=== PATIENT | male | born 1955 | race Caucasian/White ===

== ENCOUNTER → 2017-11-23 | Outpatient (CLI) | payer MEDICARE ==
--- NOTE | 2017-11-23 16:18 | CONS ---
CONSULTATION REASON FOR CONSULTATION: Sleep apnea. This 62-year-old male patient, well known to have obstructive sleep apnea. I have treated his in the past for RODOLFO and the patient has similar symptoms of snoring, witnessed apneas and excessive daytime sleepiness during the day. He goes to bed around midnight and wakes up 7:00 am in the morning. He has symptoms of nocturia. His current [place] score is 11. Does not fall asleep while driving. PAST MEDICAL HISTORY: 1. Lung cancer, with previous lobectomy for stage I non-small cell lung cancer. 2. Coronary artery disease. 3. Carotid artery disease with previous endarterectomy. 4. Congestive heart failure. PAST SURGICAL HISTORY: Left lower lobe resection, coronary artery bypass surgery, left carotid endarterectomy, bilateral knee surgery in 2016 and another mass resected from the neck area which turned out to be benign. ALLERGIES: VIAGRA. OUTPATIENT MEDICATION LIST: Includes hydralazine 50 mg twice a day, Metoprolol 50 mg b.i.d., enalapril 20 mg p.o. daily, dig 0.25 mg p.o. daily, Norvasc 10 daily, Lasix 20 daily, Klor-Con 20 mg daily, Lipitor 10 daily, Lambert aspirin 81 mg p.o. daily and 125 mg p.o. daily. SOCIAL HISTORY: Nonsmoker and in face is an ex-smoker. No history of alcohol, no history of IV drugs. FAMILY HISTORY: Negative for sleep apnea. REVIEW OF SYSTEMS: 12-point review of system was done. Positive findings are mentioned above history of present illness. Of significance is the absence of any symptoms of insomnia. No grinding of the teeth. No sleepwalking. No dry mouth. No anxiety or panic attacks. No palpitation. No heartburn. No restlessness in lower extremities. No sleep talking. No sweating. No claustrophobia. No irritability or depression. No history of any motor vehicle accident because of sleep. No sleep paralysis. No hallucinations. No cataplexy. PHYSICAL EXAMINATION: BP is 137/80, pulse is 68, respirations 16, temperature 98.2, saturation 94% on room air. Weight is 207, height 5 feet 9 inches. Neck size 16-3/4 of an inch. BMI 30.5. GENERAL APPEARANCE: Calm, comfortable. Head is atraumatic, normocephalic. Neck is short, supple. Crowding of the posterior pharynx. There is no goiter or neck masses. LUNGS: Clear to auscultation. HEART: Sounds regular rhythm. Normal S1, S2. No S3, S4. No murmurs. ABDOMEN: Soft, nontender. No organomegaly. EXTREMITIES: No edema. No cyanosis or clubbing. IMPRESSION: 1. Sleep apnea clinically suspected, currently under investigation. 2. Lungs cancer/non-small cell lung cancer stage I status post lobectomy. 3. Coronary artery disease. 4. Status post carotid endarterectomy for carotid artery disease. 5. History of congestive heart failure. 6. Degenerative arthritis. PLAN: 1. Proceed with a PSG. 2. Will continue to follow and make further recommendations based on the results. MMODL / IJN: [id number] /
== END | disposition home or self-care (01) ==
LOC: SLEEP 13:06
PROVIDERS: ATTEND Internal Medicine Critical Care Medicine
DX: G47.33 Obstructive sleep apnea (adult) (pediatric) (principal); R35.1 Nocturia; C34.90 Malignant neoplasm of unspecified part of unspecified bronchus or lung; I25.10 Atherosclerotic heart disease of native coronary artery without angina pectoris; I50.9 Heart failure, unspecified; M19.90 Unspecified osteoarthritis, unspecified site; Z98.890 Other specified postprocedural states; Z90.2 Acquired absence of lung [part of]; Z79.82 Long term (current) use of aspirin; Z79.899 Other long term (current) drug therapy; Z88.8 Allergy status to other drugs, medicaments and biological substances
CPT/HCPCS: 99201

== ENCOUNTER → 2018-07-04 | Outpatient (CLI) | payer MEDICARE ==
[2018-07-04 17:07] LABS: Basophils # (A) 0.1 k/uL (0-0.2); Basophils % (A) 1 %; Eosinophils # (A) 0.2 k/uL (0-0.7); Eosinophils % (A) 3 %; HCT 51.8 % (39.0-53.0); HGB 16.8 gm/dL (13.0-17.5); Lymphocytes % (A) 28 %; MCH 29.8 pg (25.0-35.0); MCHC 32.4 g/dL (31.0-37.0); MCV 91.8 fL (80.0-100.0); Mean Platelet Volume 7.1; Monocytes # (A) 0.4 k/uL (0-1.0); Monocytes % (A) 6 %; Neutrophils # (A) 4.4 k/uL (1.3-7.7); Neutrophils % (A) 61 %; Platelet Count 173 k/uL (150-450); RBC 5.64 m/uL (4.30-5.90); RDW 14.2 % (11.5-15.5); WBC 7.1 k/uL (3.8-10.6)
[2018-07-05 00:50] LABS: Albumin 4.5 g/dL (3.80-4.90); Albumin/Globulin Ratio 2.14 (1.60-3.17); Anion Gap 8.1 mmol/L (4.00-12.00); Calcium 9.7 mg/dL (8.7-10.3); Carbon Dioxide 28.9 mmol/L (21.6-31.8); Globulin 2.1 g/dL (1.6-3.3); LDL Cholesterol,Calculated 123.8 mg/dL (0.0-131.0); Potassium 4.3 mmol/L (3.5-5.5); Total Bilirubin 0.8 mg/dL (0.3-1.2); Total Protein 6.6 g/dL (6.2-8.2); VLDL Calculation 21.2 mg/dL (5.00-40.00)
== END | disposition home or self-care (01) ==
LOC: LABWHC1 16:01
PROVIDERS: ATTEND Family Medicine
DX: I65.21 Occlusion and stenosis of right carotid artery (principal); I10 Essential (primary) hypertension; J44.9 Chronic obstructive pulmonary disease, unspecified; I70.212 Atherosclerosis of native arteries of extremities with intermittent claudication, left leg; I42.9 Cardiomyopathy, unspecified; I48.4 Atypical atrial flutter; R41.3 Other amnesia
CPT/HCPCS: 36415; 80053; 80061; 82550; 82607; 83090; 83735; 83880; 84439; 85025

== ENCOUNTER → 2018-10-31 | Outpatient (CLI) | payer MEDICARE ==
[2018-10-31 16:46] LABS: African American GFR (CKD) 81.8 (60.0-200.0); Albumin 4.3 g/dL (3.80-4.90); Albumin/Globulin Ratio 2.26 (1.60-3.17); Anion Gap 6.9 mmol/L (4.00-12.00); BUN/Creat Ratio 15.45 Ratio (12.00-20.00); Calcium 9.2 mg/dL (8.7-10.3); Carbon Dioxide 28.1 mmol/L (21.6-31.8); Chol/HDL Ratio 3.25; Globulin 1.9 g/dL (1.6-3.3); LDL Cholesterol,Calculated 95.8 mg/dL (0.0-131.0); Non-African American GFR(CKD) 70.6 (60.0-200.0); Potassium 4.7 mmol/L (3.5-5.5); Total Bilirubin 0.8 mg/dL (0.2-1.2); Total Protein 6.2 g/dL (6.2-8.2); VLDL Calculation 12.2 mg/dL (5.00-40.00)
== END | disposition home or self-care (01) ==
LOC: LABWHC1 10:29
PROVIDERS: ATTEND Internal Medicine Interventional Cardiology
DX: E78.2 Mixed hyperlipidemia (principal)
CPT/HCPCS: 36415; 80053; 80061

== ENCOUNTER 2019-04-25 11:48 | Inpatient (IN) | payer MEDICARE ==
[2019-04-25] MEDS ORDERED: SODIUM CHLORIDE 0.9% 500 ML 500 ML IV STA (12:11)
[2019-04-25] MEDS ORDERED: DILTIAZEM DRIP BOLUS FROM BAG 1 MG SOLN IV ONE (12:12)
--- NOTE | 2019-04-25 12:18 | ED ---
General Adult HPI - General Chief complaint: Shortness of Breath Stated complaint: Chest pain/ROSANNA Time Seen by Provider: 04/25/19 11:55 Source: patient, RN notes reviewed, old records reviewed Mode of arrival: wheelchair Limitations: no limitations - History of Present Illness Initial comments: This is a 63-year-old male who presents to the emergency department complaining of his heart racing. Patient states she has a history of atrial fibrillation w ith ablation. Patient also has coronary artery disease. Patient also has had a pneumonectomy for lung cancer. Patient states started 4 days ago and it makes him short of breath. Patient states she doubled up on his beta claudio today and things have improved but he still short of breath and having the palpitations. Patient denies any chest pain. Patient denies any abdominal pain patient denies any nausea vomiting. Patient denies lightheadedness or dizziness. Patient denies any swelling to legs or calf tenderness. - Related Data Home Medications Medication Instructions Recorded Confirmed Ascorbic Acid/Multivit-Min 1,000 mg PO DAILY 04/25/19 04/25/19 [Emergen-C 1,000 mg Packet] Atorvastatin [Lipitor] 40 mg PO DAILY 04/25/19 04/25/19 Cyanocobalamin (Vitamin B-12) 1,000 mcg PO DAILY 04/25/19 04/25/19 [Vitamin B-12] Enalapril [Vasotec] 20 mg PO DAILY 04/25/19 04/25/19 Furosemide [Lasix] 20 mg PO DAILY 04/25/19 04/25/19 Metoprolol Tartrate [Lopressor] 50 mg PO DAILY 04/25/19 04/25/19 [place]-3 Fatty Acids [[place]-3] 1,000 mg PO DAILY 04/25/19 04/25/19 Potassium Chloride [Klor-Con 20] 20 meq PO DAILY 04/25/19 04/25/19 amLODIPine [Norvasc] 10 mg PO DAILY 04/25/19 04/25/19 hydrALAZINE HCL [Apresoline] 100 mg PO DAILY 04/25/19 04/25/19 Allergies Allergy/AdvReac Type Severity Reaction Status Date / Time sildenafil [From Viagra] Allergy blurred Verified 04/25/19 14:40 vision Review of Systems ROS Statement: Those systems with pertinent positive or pertinent negative responses have been documented in the HPI. ROS Other: All systems not noted in ROS Statement are negative. Past Medical History Past Medical History: Atrial Fibrillation, Coronary Artery Disease (CAD), C ancer, Hypertension, Myocardial Infarction ([place]) Additional Past Medical History / Comment(s): alexandro ca History of Any Multi-Drug Resistant Organisms: None Reported Past Surgical History: Ablation, Coronary Bypass/CABG, Orthopedic Surgery Additional Past Surgical History / Comment(s): caroid artery,lung adenocinoma,mass n neck removed, kathleen knee Past Psychological History: No Psychological Hx Reported Smoking Status: Former smoker Past Alcohol Use History: None Reported Past Drug Use History: None Reported General Exam - General Exam Comments Initial Comments: GENERAL: Patient is well-developed and well-nourished. Patient is nontoxic and well- hydrated and is in mild distress. ENT: Neck is soft and supple. No significant lymphadenopathy is noted. Oropharynx is clear. Moist mucous membranes. Neck has full range of motion without eliciting any pain. EYES: The sclera were anicteric and conjunctiva were pink and moist. Extraocular movements were intact and pupils were equal round and reactive to light. Eyelids were unremarkable. PULMONARY: Unlabored respirations. Good breath sounds bilaterally. No audible rales rhonchi or wheezing was noted. CARDIOVASCULAR: Patient is tachycardic with an irregular rhythm ABDOMEN: Soft and nontender with normal bowel sounds. No palpable organomegaly was noted. There is no palpable pulsatile mass. SKIN: Skin is clear with no lesions or rashes and otherwise unremarkable. NEUROLOGIC: Patient is alert and oriented x3. Cranial nerves II through XII are grossly intact. Motor and sensory are also intact. Normal speech, volume and content. Symmetrical smile. MUSCULOSKELETAL: Normal extremities with adequate strength and full range of motion. No lower extremity swelling or edema. No calf tenderness. LYMPHATICS: No significant lymphadenopathy is noted PSYCHIATRIC: Normal psychiatric evaluation. Limitations: no limitations Course Vital Signs 04/25/19 04/25/19 04/25/19 11:51 12:38 12:39 Temperature 97.9 F Pulse Rate 132 H 137 H 134 H Respiratory 28 H 18 17 Rate Blood Pressure 121/80 138/63 125/92 O2 Sat by Pulse 98 94 L 98 Oximetry 04/25/19 04/25/19 04/25/19 12:45 13:00 13:15 Temperature Pulse Rate 131 H 134 H 132 H Respiratory 18 16 18 Rate Blood Pressure 125/92 119/90 109/85 O2 Sat by Pulse 92 L 94 L 94 L Oximetry Medical Decision Making - Medical Decision Making EKG shows atrial fibrillation with rapid ventricular response at 135 bpm CO interval was not seen QRS is 86 QT interval 310 QTC is 465. Patient's EKG shows no ST segment elevation or depression. Chest x-ray shows mild pulmonary edema. Patient was started on Cardizem after given a Cardizem bolus. Patient remained tachycardic. Ultrasound of the scrotum showed hydrocele on the right I spoke with Dr. Jett and he agreed to admit the patient admitted the patient I consult cardiology. I continue the heparin from the ER on the floor and I continued Cardizem drip - Lab Data Result diagrams: 04/25/19 12:05 04/25/19 12:05 Lab Results 04/25/19 04/25/19 04/25/19 Range/Units 12:05 12:05 12:05 WBC 9.0 (3.8-10.6) k/uL RBC 5.31 (4.30-5.90) m/uL Hgb 16.1 (13.0-17.5) gm/dL Hct 50.1 (39.0-53.0) % MCV 94.5 (80.0-100.0) fL MCH 30.3 (25.0-35.0) pg MCHC 32.0 (31.0-37.0) g/dL RDW 14.5 (11.5-15.5) % Plt Count 173 (150-450) k/uL Neutrophils % 69 % Lymphocytes % 19 % Monocytes % 6 % Eosinophils % 3 % Basophils % 2 % Neutrophils # 6.2 (1.3-7.7) k/uL Lymphocytes # 1.7 (1.0-4.8) k/uL Monocytes # 0.6 (0-1.0) k/uL Eosinophils # 0.3 (0-0.7) k/uL Basophils # 0.2 (0-0.2) k/uL PT 10.7 (9.0-12.0) sec INR 1.0 (<1.2) APTT 24.0 (22.0-30.0) sec Sodium 139 (137-145) mmol/L Potassium 5.0 (3.5-5.1) mmol/L Chloride 111 H (98-107) mmol/L Carbon Dioxide 20 L (22-30) mmol/L Anion Gap 8 mmol/L BUN 21 H (9-20) mg/dL Creatinine 1.22 (0.66-1.25) mg/dL Est GFR (CKD-EPI)AfAm 72 (>60 ml/min/1.73 sqM) Est GFR (CKD-EPI)NonAf 63 (>60 ml/min/1.73 sqM) Glucose 104 H (74-99) mg/dL Calcium 9.4 (8.4-10.2) mg/dL Magnesium 2.1 (1.6-2.3) mg/dL Total Bilirubin 0.9 (0.2-1.3) mg/dL AST 53 (17-59) U/L ALT 48 (4-49) U/L Alkaline Phosphatase 74 (38-126) U/L Troponin I (0.000-0.034) ng/mL Total Protein 6.7 (6.3-8.2) g/dL Albumin 4.0 (3.5-5.0) g/dL 04/25/19 Range/Units 12:05 WBC (3.8-10.6) k/uL RBC (4.30-5.90) m/uL Hgb (13.0-17.5) gm/dL Hct (39.0-53.0) % MCV (80.0-100.0) fL MCH (25.0-35.0) pg MCHC (31.0-37.0) g/dL RDW (11.5-15.5) % Plt Count (150-450) k/uL Neutrophils % % Lymphocytes % % Monocytes % % Eosinophils % % Basophils % % Neutrophils # (1.3-7.7) k/uL Lymphocytes # (1.0-4.8) k/uL Monocytes # (0-1.0) k/uL Eosinophils # (0-0.7) k/uL Basophils # (0-0.2) k/uL PT (9.0-12.0) sec INR (<1.2) APTT (22.0-30.0) sec Sodium (137-145) mmol/L Potassium (3.5-5.1) mmol/L Chloride (98-107) mmol/L Carbon Dioxide (22-30) mmol/L Anion Gap mmol/L BUN (9-20) mg/dL Creatinine (0.66-1.25) mg/dL Est GFR (CKD-EPI)AfAm (>60 ml/min/1.73 sqM) Est GFR (CKD-EPI)NonAf (>60 ml/min/1.73 sqM) Glucose (74-99) mg/dL Calcium (8.4-10.2) mg/dL Magnesium (1.6-2.3) mg/dL Total Bilirubin (0.2-1.3) mg/dL AST (17-59) U/L ALT (4-49) U/L Alkaline Phosphatase (38-126) U/L Troponin I <0.012 (0.000-0.034) ng/mL Total Protein (6.3-8.2) g/dL Albumin (3.5-5.0) g/dL Critical Care Time Critical Care Time: Yes Total Critical Care Time: 35 Disposition Clinical Impression: Atrial fibrillation with rapid ventricular response, Pulmonary edema, Hydrocele Disposition: ADMITTED IP TO THIS [facility] Time of Disposition: 13:54
[2019-04-25 12:23] LABS: Basophils # (A) 0.2 k/uL (0-0.2); Basophils % (A) 2 %; Eosinophils # (A) 0.3 k/uL (0-0.7); Eosinophils % (A) 3 %; HCT 50.1 % (39.0-53.0); HGB 16.1 gm/dL (13.0-17.5); Lymphocytes # (A) 1.7 k/uL (1.0-4.8); Lymphocytes % (A) 19 %; MCH 30.3 pg (25.0-35.0); MCV 94.5 fL (80.0-100.0); Mean Platelet Volume 8.8; Monocytes # (A) 0.6 k/uL (0-1.0); Monocytes % (A) 6 %; Neutrophils # (A) 6.2 k/uL (1.3-7.7); Neutrophils % (A) 69 %; Platelet Count 173 k/uL (150-450); RBC 5.31 m/uL (4.30-5.90); RDW 14.5 % (11.5-15.5)
[2019-04-25] MEDS: DILTIAZEM 125 MG in SODIUM CHLORIDE 0.9% 100 ML IV SCH ×2 (12:33→22:49)
--- NOTE | 2019-04-25 12:36 | XR ---
EXAMINATION TYPE: XR chest 2V DATE OF EXAM: 04/25/2019 COMPARISON: NONE HISTORY: Shortness of breath cough and congestion for 4 days. Chest tightness today. TECHNIQUE: Frontal and lateral views of the chest are obtained. FINDINGS: There is mild cardiomegaly with cardiac closure device posterior superior aspect. Overlyin g sternal wires and mediastinal clips. Mild central vascular congestion suspected with multiple tiny left greater than right pleural effusions. Patchy associated bibasilar atelectasis is felt present. T he osseous structures are demineralized. Surgical clips right neck are partially imaged. IMPRESSION: Correlate for CHF exacerbation as there is mild cardiomegaly with suspected mild central vascular congestion and interstitial edema and small to tiny left greater than right pleural effusio ns.
[2019-04-25 12:47] LABS: Calcium 9.4 mg/dL (8.4-10.2); Magnesium 2.1 mg/dL (1.6-2.3); Total Bilirubin 0.9 mg/dL (0.2-1.3); Total Protein 6.7 g/dL (6.3-8.2)
[2019-04-25 12:54] LABS: Prothrombin Time 10.7 sec (9.0-12.0)
[2019-04-25] MEDS ORDERED: HEPARIN SODIUM,PORCINE 5,000 UNIT/ML 1 ML VIAL IV ONE (13:51)
[2019-04-25] MEDS ORDERED: NITROGLYCERIN SL TABS 0.4 MG TAB SUBLINGUAL PRN (13:55)
--- NOTE | 2019-04-25 13:58 | US ---
EXAMINATION TYPE: US scrotum with doppler. TECHNIQUE: Grayscale and color Doppler Duplex imaging performed of the scrotum. DATE OF EXAM: 04/25/2019 COMPARISON: NONE CLINICAL HISTORY: 63-year-old male Right testicular pain . Right side pain. No injury per patient. Findings: EXAM MEASUREMENTS: TESTICLES: Right Testicle: 2.4 x 3.8 x 2.7 cm with a small 4 mm appendage. A small 3 mm scrotal joellen also note d. Left Testicle: 3.7 x 2.7 x 2.4 cm EPIDIDYMIS HEAD: Right Epididymis: Not visualized Left Epididymis: 1.0 x 0.9 x 0.7 cm Doppler performed to assess for testicular vascularity; good bilateral color flow and waveforms are s een. There is no evidence of testicular torsion. Presence of hydroceles: Moderate to large on the right Presence of varicoceles: Sizable on the left IMPRESSION: 1. No sonographic evidence for testicular torsion. 2. Sizable varicocele on the left. 3. Moderate to large hydrocele on the right.
[2019-04-25] MEDS: HEPARIN SOD,PORK IN 0.45% NACL 25,000 UNIT in 0.45% NACL 1 250ML.BAG IV SCH (14:51)
[2019-04-25 15:09] LABS: Appearance,Urine Clear (Clear); Bilirubin,Urine Negative (Negative); Blood,Urine Negative (Negative); Color,Urine Yellow; Glucose,Urine (UA) Negative (Negative); Hyaline Casts,Urine 10 /lpf (0-2); Ketones,Urine Negative (Negative); Leukocyte Esterase,Urine Negative (Negative); Mucus,Urine Rare /hpf; Nitrite,Urine Negative (Negative); Protein,Urine 1+ (Negative); RBC,Urine <1 /hpf (0-5); Specific Gravity,Urine 1.012 (1.001-1.035); Urobilinogen,Urine <2.0 mg/dL (<2.0); WBC,Urine 1 /hpf (0-5)
[2019-04-25] MEDS ORDERED: AMIODARONE 200 MG TAB PO STA (16:30)
[2019-04-25] MEDS ORDERED: FUROSEMIDE 10 MG/ML 4 ML VIAL IV STA (16:42)
--- NOTE | 2019-04-25 18:21 | CONS ---
CONSULTATION CHIEF COMPLAINT: Palpitations. Mr. Aparicio is a 63-year-old gentleman with history of hypertension, dyslipidemia, peripheral vascular disease, carotid stenosis, status post right carotid endarterectomy, coronary artery disease, status post CABG, atrial fibrillation, status post ablation, who comes to hospital complaining of palpitations. He has been feeling short of breath and having palpitations for the last 4 days. It started on Wednesday, got gradually worse. He called our office, where he was told to increase the dose of metoprolol. As symptoms got worse, he was advised to come to the emergency room and get admitted. He does not have any chest pain but has mild leg edema. There is no history of PND or orthopnea. He also complains of scrotal swelling. At the time of my evaluation, he is in atrial fibrillation with poorly controlled ventricular rate. He was on Cardizem 7.5 mg/hour. I increased it to 10 mg/hour. He is on Lasix. I am going to give him a dose of 40 mg of IV Lasix and resume his beta blockers. I have given him a dose of amiodarone 400 b.i.d. If his heart rate is not well controlled or he does not convert to sinus rhythm, we will consider cardioversion on him. PAST MEDICAL HISTORY: His past medical history is significant for CAD, status post CABG, hypertension, lung cancer, status post pneumonectomy, carotid stenosis, status post right carotid endarterectomy, peripheral arterial disease, status post angioplasty. ALLERGIES: VIAGRA. MEDICATIONS: Medications at home include Lipitor, vitamin C, Vasotec, Lasix, potassium, Norvasc, metoprolol and hydralazine. FAMILY HISTORY: Negative for premature coronary artery disease. SOCIAL HISTORY: Negative for current smoking, EtOH abuse or drug abuse. REVIEW OF SYSTEMS: HEENT is unremarkable. CARDIAC: As described above. RESPIRATORY: As described above. GI: Negative. GENITOURINARY: Negative. ALLERGY: Negative. IMMUNOLOGY: Negative. SKIN: Negative. MUSCULOSKELETAL: Significant for arthritis. PSYCHOSOCIAL: Negative. ENDOCRINE: Negative. DERMATOLOGY: Negative. CONSTITUTIONAL: Negative. ONCOLOGICAL: Negative. FUEL CELL REPAIRER: Negative. Rest of the system review is not relevant. PHYSICAL EXAMINATION: Patient is comfortable at rest. Heart rate is 126 beats per minute. Blood pressure is 120/82, respiratory rate is 18. Oxygen saturation is 97% on room air. There is no jugular venous distention. Carotid upstroke is diminished. There is right-sided carotid bruit. Heart exam reveals first and second heart sounds, irregular rhythm and a systolic murmur at the left lower sternal border. Abdomen is soft. Examination of extremities reveals bilateral 1+ pitting edema. EKG shows atrial fibrillation with nonspecific ST-T wave changes. Chest x-ray showed cardiomegaly with interstitial edema. ASSESSMENT: 1. Persistent atrial fibrillation with poorly controlled ventricular rate. 2. Acute onset congestive heart failure, probably diastolic. 3. Coronary artery disease, status post coronary artery bypass grafting. 4. Carotid stenosis, status post carotid endarterectomy. 5. Peripheral vascular disease. PLAN: Patient will be treated with heparin, intravenous Cardizem, amiodarone, IV Lasix, beta blockers, DOROTHY inhibitors. I will obtain a 2D echo to evaluate his LV function. Will see how he evolves over the next 24 hours. If necessary, we may have to do KATHLEEN cardioversion. ABRAN / IJN: [id number] /
[2019-04-25] MEDS: AMIODARONE 200 MG TAB PO SCH (20:19)
[2019-04-26 06:10] LABS: Cholesterol 115 mg/dL (<200); HDL Cholesterol 37 mg/dL (40-60); LDL Cholesterol,Calculated 64 mg/dL (0-99); Triglycerides 71 mg/dL (<150)
[2019-04-26] MEDS: METOPROLOL TARTRATE 50 MG TAB PO SCH (08:55)
[2019-04-26] MEDS: AMIODARONE 200 MG TAB PO SCH ×2 (08:55→20:14)
[2019-04-26] MEDS: LISINOPRIL 20 MG TAB PO SCH (08:56)
[2019-04-26] MEDS: ASPIRIN 81 MG PO SCH (08:56)
[2019-04-26] MEDS ORDERED: ASPIRIN 325 MG TAB PO SCH (09:00)
[2019-04-26] MEDS ORDERED: SODIUM CHLORIDE 0.9% 1,000 ML IV ONE ×2 (09:55→13:54)
[2019-04-26] MEDS: HEPARIN SOD,PORK IN 0.45% NACL 25,000 UNIT in 0.45% NACL 1 250ML.BAG IV SCH (10:36)
--- NOTE | 2019-04-26 12:59 | P.GSCN ---
History of Present Illness Consult date: 04/26/19 History of present illness: The patient is a 63 old gentleman admitted the hospital with atrial fibrillation and rapid ventricular rate. During evaluation he was noticed to have a right scrotal mass consistent with a hydrocele. We've been asked to see the patient. Historically this patient's hydroceles been present for about 48 hours. He does admit to some heavy lifting in the last several days. He has no other urologic history. He has no problems urinating. There's been no groin masses scrotal masses. There's been no urine infection. There's been no blood in the urine. He has not had previous urologic surgery. He had an ultrasound that identified bilateral hydroceles very large on the right and small on the left. He had a urinalysis that was clear. He is asymptomatic. Review of Systems - Constitutional Reports as per HPI - Cardiovascular Reports as per HPI - Genitourinary Reports as per HPI Past Medical History Past Medical History: Atrial Fibrillation, Coronary Artery Disease (CAD), Cancer, Heart Failure, COPD, Hypertension, Myocardial Infarction ([place]), Osteoarthritis (OA), Pneumonia, Sleep Apnea/CPAP/BIPAP, Vascular Disorder Additional Past Medical History / Comment(s): Afib with ablation, R testicle edema starting 04/24/19, L lung cancer with surgery, RODOLFO without device, bronchitis, chronic low back pain, stomach ulcer at age 15 yrs. Last Myocardial Infarction Date:: 2011 History of Any Multi-Drug Resistant Organisms: None Reported Past Surgical History: Cardiac Ablation, Coronary Bypass/CABG, Heart Catheterization, Joint Replacement, Orthopedic Surgery Additional Past Surgical History / Comment(s): 2014 L lower lung lobectomy, L caratid endartectomy, 2011 CABG 3 vessel, R side of neck benign mass removed, bilateral leg vascular surgery with R leg done twice, colonoscopy, bilateral total knee arthroplasties, L index finger injury/amp at 13y/o. Past Anesthesia/Blood Transfusion Reactions: No Reported Reaction Smoking Status: Former smoker Additional Past Alcohol Use History / Comment(s): Patient was a smoker of 1 ppd x 40 years and quit 2014. No illicet - Past Family History Father Family Medical History: No Reported History Additional Family Medical History / Comment(s): Father is healthy and is 87yrs old Mother Family Medical History: Vascular Disorder Additional Family Medical History / Comment(s): Mother is . She had multiple blockages in her legs. Medications and Allergies Home Medications Medication Instructions Recorded Confirmed Type Ascorbic Acid/Multivit-Min 1,000 mg PO DAILY 04/25/19 04/25/19 History [Emergen-C 1,000 mg Packet] Atorvastatin [Lipitor] 40 mg PO DAILY 04/25/19 04/25/19 History Cyanocobalamin (Vitamin B-12) 1,000 mcg PO DAILY 04/25/19 04/25/19 History [Vitamin B-12] Enalapril [Vasotec] 20 mg PO DAILY 04/25/19 04/25/19 History Furosemide [Lasix] 20 mg PO DAILY 04/25/19 04/25/19 History Metoprolol Tartrate [Lopressor] 50 mg PO DAILY 04/25/19 04/25/19 History [place]-3 Fatty Acids [[place]-3] 1,000 mg PO DAILY 04/25/19 04/25/19 History Potassium Chloride [Klor-Con 20] 20 meq PO DAILY 04/25/19 04/25/19 History amLODIPine [Norvasc] 10 mg PO DAILY 04/25/19 04/25/19 History hydrALAZINE HCL [Apresoline] 100 mg PO DAILY 04/25/19 04/25/19 History Allergies Allergy/AdvReac Type Severity Reaction Status Date / Time sildenafil [From Viagra] Allergy blurred Verified 04/25/19 14:40 vision Surgical - Exam Vital Signs Temp Pulse Resp BP Pulse Ox 97.9 F 132 H 28 H 121/80 98 04/25/19 11:51 04/25/19 11:51 04/25/19 11:51 04/25/19 11:51 04/25/19 11:51 - General well developed, well nourished, no distress - Eyes PERRL - ENT no hearing loss - Neck trachea midline - Respiratory normal expansion, normal respiratory effort - Cardiovascular Rhythm: irregularly irregular - Abdomen Abdomen: soft, non tender Hernia: inguinal - Genitourinary Large right hydrocele. Testicle wasn't palpable. Mild scrotal and penile edema unrelated to the hydrocele. Small right inguinal hernia. normal penis with no external lesions - Integumentary no rash, no growths - Neurologic normal coordination - Musculoskeletal normal posture - Psychiatric oriented to time, oriented to person, oriented to place, speech is normal, memory intact Results - Labs 04/25/19 12:05 04/25/19 12:05 Abnormal Lab Results - Last 24 Hours (Table) 04/25/19 04/25/19 04/25/19 Range/Units 12:05 21:14 Unknown APTT 32.3 H (22.0-30.0) sec Chloride 111 H (98-107) mmol/L Carbon Dioxide 20 L (22-30) mmol/L BUN 21 H (9-20) mg/dL Glucose 104 H (74-99) mg/dL HDL Cholesterol (40-60) mg/dL Urine Protein 1+ H (Negative) Hyaline Casts 10 H (0-2) /lpf Urine Mucus Rare H (None) /hpf 04/26/19 04/26/19 Range/Units 05:18 05:18 APTT 43.5 H (22.0-30.0) sec Chloride (98-107) mmol/L Carbon Dioxide (22-30) mmol/L BUN (9-20) mg/dL Glucose (74-99) mg/dL HDL Cholesterol 37 L (40-60) mg/dL Urine Protein (Negative) Hyaline Casts (0-2) /lpf Urine Mucus (None) /hpf Diabetes panel 04/25/19 04/26/19 Range/Units 12:05 05:18 Sodium 139 (137-145) mmol/L Potassium 5.0 (3.5-5.1) mmol/L Chloride 111 H (98-107) mmol/L Carbon Dioxide 20 L (22-30) mmol/L BUN 21 H (9-20) mg/dL Creatinine 1.22 (0.66-1.25) mg/dL Glucose 104 H (74-99) mg/dL Calcium 9.4 (8.4-10.2) mg/dL AST 53 (17-59) U/L ALT 48 (4-49) U/L Alkaline Phosphatase 74 (38-126) U/L Total Protein 6.7 (6.3-8.2) g/dL Albumin 4.0 (3.5-5.0) g/dL Triglycerides 71 (<150) mg/dL HDL Cholesterol 37 L (40-60) mg/dL Calcium panel 04/25/19 Range/Units 12:05 Calcium 9.4 (8.4-10.2) mg/dL Albumin 4.0 (3.5-5.0) g/dL Pituitary panel 04/25/19 Range/Units 12:05 Sodium 139 (137-145) mmol/L Potassium 5.0 (3.5-5.1) mmol/L Chloride 111 H (98-107) mmol/L Carbon Dioxide 20 L (22-30) mmol/L BUN 21 H (9-20) mg/dL Creatinine 1.22 (0.66-1.25) mg/dL Glucose 104 H (74-99) mg/dL Calcium 9.4 (8.4-10.2) mg/dL Adrenal panel 04/25/19 Range/Units 12:05 Sodium 139 (137-145) mmol/L Potassium 5.0 (3.5-5.1) mmol/L Chloride 111 H (98-107) mmol/L Carbon Dioxide 20 L (22-30) mmol/L BUN 21 H (9-20) mg/dL Creatinine 1.22 (0.66-1.25) mg/dL Glucose 104 H (74-99) mg/dL Calcium 9.4 (8.4-10.2) mg/dL Total Bilirubin 0.9 (0.2-1.3) mg/dL AST 53 (17-59) U/L ALT 48 (4-49) U/L Alkaline Phosphatase 74 (38-126) U/L Total Protein 6.7 (6.3-8.2) g/dL Albumin 4.0 (3.5-5.0) g/dL - Imaging US - pelvic: report reviewed, image reviewed Assessment and Plan Assessment: Impression: New onset right hydrocele moderate size. Relatively asymptomatic. Probably related to inguinal hernia, perhaps communicating hernia hydrocele Recommendations: At this point in time I would do nothing. we can reassess this as an outpatient. I've discussed the pros and cons of intervention surgically.
[2019-04-26] MEDS ORDERED: BENZOCAINE SPRAY 1 CAN MUCOUS MEM ONE ×2 (13:45→14:07)
[2019-04-26] MEDS ORDERED: PROPOFOL 10 MG/ML 20 ML VIAL IV ONE (13:52)
--- NOTE | 2019-04-26 13:52 | P.PN ---
Subjective Progress Note Date: 04/26/19 This is a 63-year-old gentleman with history of hypertension, hyperlipidemia, peripheral vascular disease, carotid stenosis status post right carotid endarterectomy, coronary artery disease with prior bypass surgery, atrial fibrillation with prior cardioversion and subsequent ablation, who presen chiquis to the hospital with symptoms of palpitations and associated shortness of breath. The patient was seen in consultation yesterday by Dr. Donnelly, the time of our examination this morning the patient continued to be in atrial fibrillation and his heart rate was in the 1:30 to 140 range in spite of being on amiodarone, Cardizem, and beta claudio. Dr. Erickson who is his actual auriculotherapist is out of town, Dr. Donnelly spoke with the patient regarding undergoing elective cardioversion today. Risks and the benefits were explained to the patient in detail and he was willing to proceed. Patient is quite short of breath with his A. fib heart rate being up. Patient was complaining this morning is significant swelling in his bilateral scrotal and penis area. Objective - Vital Signs Vital signs: Vital Signs Temp 97.7 F 04/26/19 09:08 Pulse 114 H 04/26/19 11:45 Resp 18 04/26/19 11:45 BP 123/80 04/26/19 09:45 Pulse Ox 95 04/26/19 09:45 Intake & Output 04/25/19 04/26/19 04/26/19 18:59 06:59 18:59 Intake Total 489.083 320.988 98.112 Output Total 500 Balance 489.083 320.988 -401.888 Weight 98.883 kg 97.1 kg Intake: IV 80 Diltiazem 125 mg In 40 Sodium Chloride 0.9% 100 ml @ 10 MG/HR 10 mls/hr IV .[id number] [facility] Rx#: [id number] Heparin Sod,Pork in 0.45% 40 NaCl 25,000 unit In 0.45 % NaCl 1 250ml.bag @ 10. 113 UNITS/KG/HR 10 mls/hr IV .Q24H [facility] Rx#: [id number] Intake, IV Titration 9.083 240.988 98.112 Amount Diltiazem 125 mg In 9.083 63.375 Sodium Chloride 0.9% 100 ml @ 10 MG/HR 10 mls/hr IV .[id number] [facility] Rx#: [id number] Heparin Sod,Pork in 0.45% 177.613 98.112 NaCl 25,000 unit In 0.45 % NaCl 1 250ml.bag @ 10. 113 UNITS/KG/HR 10 mls/hr IV .Q24H [facility] Rx#: [id number] Oral 480 Output: Urine 500 Other: # Voids 2 - Exam PHYSICAL EXAMINATION: GENERAL: 43-year-old gentleman in no acute distress at the time of my examination HEENT: Head is atraumatic, normocephalic. Pupils equal, round. Sclera anicteric. Conjunctiva are clear. Mucous membranes of the mouth are moist. Neck is supple. There is no elevated jugular venous pressure.] bruit is heard. HEART EXAMINATION: Heart S1 and S2 irregularly irregular a systolic murmur is heard CHEST EXAMINATION: Lungs are clear to auscultation and precussion. No chest wall tenderness is noted on palpation or with deep breathing. ABDOMEN: Soft, nontender. Bowel sounds are heard. No organomegaly noted. EXTREMITIES: 2+ peripheral pulses with 1+ evidence of peripheral edema and no calf tenderness noted. NEUROLOGIC [patient is awake, alert and oriented 3 - Labs CBC & Chem 7: 04/25/19 12:05 04/25/19 12:05 Labs: Abnormal Lab Results - Last 24 Hours (Table) 04/25/19 04/25/19 04/26/19 Range/Units 21:14 Unknown 05:18 APTT 32.3 H (22.0-30.0) sec HDL Cholesterol 37 L (40-60) mg/dL Urine Protein 1+ H (Negative) Hyaline Casts 10 H (0-2) /lpf Urine Mucus Rare H (None) /hpf 04/26/19 04/26/19 Range/Units 05:18 11:37 APTT 43.5 H 51.1 H (22.0-30.0) sec HDL Cholesterol (40-60) mg/dL Urine Protein (Negative) Hyaline Casts (0-2) /lpf Urine Mucus (None) /hpf Assessment and Plan Plan: Assessment and plan #1 persistent atrial fibrillation with rapid ventricular response #2 coronary artery disease and prior bypass surgery #3 carotid stenosis status post carotid endarterectomy #4 peripheral vascular disease #5 history of paroxysmal atrial fibrillation status post prior cardioversion and ablation #6 hypertension #7 hyperlipidemia Plan Because of the persistent atrial fibrillation with rapid rates patient has been advised to undergo elective cardioversion today this be performed by Dr. Donnelly, further recommendations to be made. DNP note has been reviewed, I agree with a documented findings and plan of care. Patient was seen and examined.
--- NOTE | 2019-04-26 14:10 | P.HPIM ---
History of Present Illness H&P Date: 04/26/19 Chief Complaint: Heart racing This is a 63-year-old male patient of Dr. Gutierrez and Dr. Erickson with past medical history of coronary artery disease with history of three-vessel CABG in 2015, chronic atrial fibrillation status post cardioversion and ablation, peripheral vascular disease status post left carotid endarterectomy and bilateral lower leg procedures, hypertension, hyperlipidemia, lung cancer status post lobectomy for stage I non-small cell lung cancer, obstructive sleep apnea waiting for CPAP. The patient states that 4 days ago he was starting to have shortness of breath he doubled up on his beta claudio today yesterday. He was having palpitations as well but despite increasing his beta claudio he continued to have palpitations and shortness of breath. He denies any chest pain, abdominal pain. No nausea or vomiting. He denies any lightheadedness or dizziness. Patient also complains of scrotal edema. He states onset was 2 days ago when he had some discomfort in the right side. In the shower yesterday morning he could feel that the right side was swollen and by today it had spread and is now very tender. Patient presented to [facility] emergency center with heart rate of 138. EKG was atrial fibrillation at rate of 135 bpm with no acute ST changes. Chest x-ray showed mild pulmonary edema. Patient was started on Cardizem bolus followed by Cardizem drip and heparin drip. Ultrasound of scrotum showed a hydrocele on the right side. Patient continued to be tachycardic and started on amiodarone with plan for cardioversion today. Review of Systems Constitutional: Denies chills, Denies fever, Denies poor appetite, Denies weakness Eyes: denies blurred vision, denies pain Ears, nose, mouth and throat: Denies dysphagia, Denies headache, Denies nasal congestion, Denies nasal discharge, Denies sore throat Cardiovascular: Reports irregular heart beat, Reports palpitations, Reports shortness of breath, Denies chest pain, Denies decreased exercise tolerance, Denies dyspnea on exertion, Denies lightheadedness, Denies syncope Respiratory: Reports dyspnea, Reports sleep apnea, Denies congestion, Denies cough, Denies cough with sputum, Denies excessive sputum, Denies hemoptysis, Denies home oxygen, Denies wheezing Gastrointestinal: Denies abdominal pain, Denies diarrhea, Denies loss of appetite, Denies nausea, Denies vomiting Genitourinary: Reports genital pain, Reports testicular pain, Denies dysuria, Denies urinary retention Musculoskeletal: Denies muscle weakness, Denies myalgias Integumentary: Denies pruritus, Denies rash, Denies wounds Neurological: Denies change in mentation, Denies change in speech, Denies numbness, Denies seizures, Denies weakness Psychiatric: Denies anxiety, Denies depression Endocrine: Denies fatigue, Denies weight change Past Medical History Past Medical History: Atrial Fibrillation, Coronary Artery Disease (CAD), Cancer, Heart Failure, COPD, Hypertension, Myocardial Infarction (ID), Osteoarthritis (OA), Pneumonia, Sleep Apnea/CPAP/BIPAP, Vascular Disorder Additional Past Medical History / Comment(s): Afib with ablation, R testicle edema starting 04/24/19, L lung cancer with surgery, RODOLFO without device, bronchitis, chronic low back pain, stomach ulcer at age 15 yrs. Last Myocardial Infarction Date:: 2011 History of Any Multi-Drug Resistant Organisms: None Reported Past Surgical History: Cardiac Ablation, Coronary Bypass/CABG, Heart Catheterization, Joint Replacement, Orthopedic Surgery Additional Past Surgical History / Comment(s): 2014 L lower lung lobectomy, L caratid endartectomy, 2011 CABG 3 vessel, R side of neck benign mass removed, bilateral leg vascular surgery with R leg done twice, colonoscopy, bilateral total knee arthroplasties, L index finger injury/amp at 13y/o. Past Anesthesia/Blood Transfusion Reactions: No Reported Reaction Smoking Status: Former smoker Additional Past Alcohol Use History / Comment(s): Patient was a smoker of 1 ppd x 40 years and quit 2014. No illicit drug use, no alcohol use. - Past Family History Father Family Medical History: No Reported History Additional Family Medical History / Comment(s): Father is 87 years old with no major medical problems. Mother Family Medical History: Vascular Disorder Additional Family Medical History / Comment(s): Mother is at age 71 with peripheral vascular disease. Brother(s) Additional Family Medical History / Comment(s): Patient has 2 brothers and one has history of throat cancer, one brother has no major medical problems. Patient has no sisters. Patient is one daughter with no major medical problems. Medications and Allergies Home Medications Medication Instructions Recorded Confirmed Type Ascorbic Acid/Multivit-Min 1,000 mg PO DAILY 04/25/19 04/25/19 History [Emergen-C 1,000 mg Packet] Atorvastatin [Lipitor] 40 mg PO DAILY 04/25/19 04/25/19 History Cyanocobalamin (Vitamin B-12) 1,000 mcg PO DAILY 04/25/19 04/25/19 History [Vitamin B-12] Enalapril [Vasotec] 20 mg PO DAILY 04/25/19 04/25/19 History Furosemide [Lasix] 20 mg PO DAILY 04/25/19 04/25/19 History Metoprolol Tartrate [Lopressor] 50 mg PO DAILY 04/25/19 04/25/19 History [place]-3 Fatty Acids [[place]-3] 1,000 mg PO DAILY 04/25/19 04/25/19 History Potassium Chloride [Klor-Con 20] 20 meq PO DAILY 04/25/19 04/25/19 History amLODIPine [Norvasc] 10 mg PO DAILY 04/25/19 04/25/19 History hydrALAZINE HCL [Apresoline] 100 mg PO DAILY 04/25/19 04/25/19 History Allergies Allergy/AdvReac Type Severity Reaction Status Date / Time sildenafil [From Viagra] Allergy blurred Verified 04/25/19 14:40 vision Physical Exam Vitals: Vital Signs Temp Pulse Pulse Resp BP BP Pulse Ox 04/26/19 09:45 125 H 18 123/80 95 04/26/19 09:08 97.7 F 124 H 18 118/80 92 L 04/26/19 04:00 97.9 F 124 H 17 113/81 94 L 04/25/19 23:28 97.9 F 129 H 17 105/69 93 L 04/25/19 20:00 97.7 F 138 H 18 136/75 92 L 04/25/19 16:00 97.8 F 138 H 18 124/78 96 04/25/19 15:00 138 H 18 115/89 97 04/25/19 14:30 146 H 122/81 96 04/25/19 13:30 137 H 120/95 89 L 04/25/19 13:15 132 H 18 109/85 94 L 04/25/19 13:00 134 H 16 119/90 94 L 04/25/19 12:45 131 H 18 125/92 92 L 04/25/19 12:39 134 H 17 125/92 98 04/25/19 12:38 137 H 18 138/63 94 L 04/25/19 11:51 97.9 F 132 H 28 H 121/80 98 Intake and Output 04/25/19 04/26/19 04/26/19 22:59 06:59 14:59 Intake Total 703.542 97.446 63.001 Balance 703.542 97.446 63.001 Intake: IV 80 Diltiazem 125 mg In 40 Sodium Chloride 0.9% 100 ml @ 10 MG/HR 10 mls/hr IV .[id number] [facility] Rx#: [id number] Heparin Sod,Pork in 0.45% 40 NaCl 25,000 unit In 0.45 % NaCl 1 250ml.bag @ 10. 113 UNITS/KG/HR 10 mls/hr IV .Q24H [facility] Rx#: [id number] Intake, IV Titration 143.542 97.446 63.001 Amount Diltiazem 125 mg In 63.375 Sodium Chloride 0.9% 100 ml @ 10 MG/HR 10 mls/hr IV .[id number] [facility] Rx#: [id number] Heparin Sod,Pork in 0.45% 80.167 97.446 63.001 NaCl 25,000 unit In 0.45 % NaCl 1 250ml.bag @ 10. 113 UNITS/KG/HR 10 mls/hr IV .Q24H [facility] Rx#: [id number] Oral 480 Other: # Voids 1 2 Weight 98.883 kg 97.1 kg Gen: This is a 63-year-old male. Patient is resting in bed and appears to be comfortable and in no acute distress. HEENT: Head is atraumatic, normocephalic. Pupils equal, round. Sclerae is anicteric. NECK: Supple. No JVD. No lymphadenopathy. No thyromegaly. LUNGS: Clear to auscultation. No wheezes or rhonchi. No intercostal retractions. HEART: Irregularly irregular, systolic murmur. ABDOMEN: Soft. Bowel sounds are present. No masses. No tenderness. Patient has significant scrotal edema bilaterally EXTREMITIES: 1+ pedal edema bilaterally. No calf tenderness. Dorsalis pedis +2 bilaterally NEUROLOGICAL: Patient is awake, alert and oriented x3. Cranial nerves 2 through 12 are grossly intact. Results CBC & Chem 7: 04/25/19 12:05 04/25/19 12:05 Labs: Abnormal Lab Results - Last 24 Hours (Table) 04/25/19 04/25/19 04/25/19 Range/Units 12:05 21:14 Unknown APTT 32.3 H (22.0-30.0) sec Chloride 111 H (98-107) mmol/L Carbon Dioxide 20 L (22-30) mmol/L BUN 21 H (9-20) mg/dL Glucose 104 H (74-99) mg/dL HDL Cholesterol (40-60) mg/dL Urine Protein 1+ H (Negative) Hyaline Casts 10 H (0-2) /lpf Urine Mucus Rare H (None) /hpf 04/26/19 04/26/19 Range/Units 05:18 05:18 APTT 43.5 H (22.0-30.0) sec Chloride (98-107) mmol/L Carbon Dioxide (22-30) mmol/L BUN (9-20) mg/dL Glucose (74-99) mg/dL HDL Cholesterol 37 L (40-60) mg/dL Urine Protein (Negative) Hyaline Casts (0-2) /lpf Urine Mucus (None) /hpf Thrombosis Risk Factor Assmnt - DVT/VTE Prophylaxis DVT/VTE Prophylaxis: Pharmacologic Prophylaxis ordered - Choose All That Apply Any of the Below Risk Factors Present?: Yes Each Factor Represents 1 point: Abnormal pulmonary function (COPD), Heart failure (<1month), Obesity (BMI >25) Other Risk Factors: Yes Each Risk Factor Represents 2 Points: Age 61-74 years, Malignancy Other congenital or acquired thrombophilia - If yes, enter type in comment: No Thrombosis Risk Factor Assessment Total Risk Factor Score: 7 Thrombosis Risk Factor Assessment Level: High Risk Assessment and Plan Plan: 1. Atrial fibrillation with RVR. Patient is currently on Cardizem drip, oral amiodarone and heparin drip, Lopressor 50 mg daily. Patient is scheduled for cardioversion today. 2. Chronic atrial fibrillation. Continue as in #1 3. Coronary artery disease status post three-vessel CABG. Continue aspirin 81 mg daily, atorvastatin 40 mg daily. 4. History of carotid stenosis status post left carotid endarterectomy. Continue aspirin and statin. 5. Peripheral vascular disease status post multiple lower extremity procedures, stable. Continue aspirin and statin. 6. Hypertension. Continue Cardizem drip, amiodarone, Lopressor and Vasotec. Hold hydralazine, amlodipine and Lasix. 7. Hyperlipidemia. Continue Lipitor 8. History of lung cancer status post lobectomy, stable. 9. Obstructive sleep apnea, awaiting for CPAP to be arranged, stable. 10. Scrotal edema secondary to right hydrocele. Consult with urology. 11. GI prophylaxis. Protonix. 12. DVT prophylaxis. Heparin drip. Patient will be admitted to the hospital for a minimum of 2 night stay. Discharge plan: Home Impression and plan of care have been directed as dictated by the signing physician. Sissy Mario nurse practitioner acting as scribe for signing physician.
--- NOTE | 2019-04-26 15:13 | ECHOT ---
TRANSESOPHAGEAL ECHOCARDIOGRAM PROCEDURE: Transesophageal echo. INDICATION: Persistent atrial fibrillation with rapid ventricular rate. PROCEDURE NOTE: After obtaining informed consent, transesophageal echocardiogram is performed in left lateral position using an Omni plane probe. Local and IV sedation were obtained by the panel raiser operator. Patient tolerated the procedure well without any obvious immediate complications. FINDINGS: 1. Left atrial appendage. The patient does not have a left atrial appendage. He is post-bypass surgery. 2. There is no intracardiac thrombus within the left atrium, right atrium, right ventricle and left ventricle. 3. Left ventricle has normal size and an ejection fraction of around 55% with atypical septal motion. 4. Mitral valve shows mild mitral regurgitation. 5. Tricuspid valve appears anatomically normal. 6. Interatrial septum, there is no evidence of [id number]-rlnhb shunt by color-flow Doppler or stxri-im-qzld shunt by agitated saline contrast study.\. 7. Aortic valve is a 3-leaflet valve. There is no evidence of aortic stenosis or regurgitation. Aorta shows [id number] atherosclerotic changes. CONCLUSION: No intracardiac thrombus. PLAN: We will proceed with cardioversion. CARDIOVERSION NOTE: After obtaining informed consent and ensuring that the patient is on IV heparin and making sure that the patient does not have intracardiac thrombus. He underwent cardioversion with synchronized DC current initially with 300 joules following which he converted to sinus rhythm but flipped back into atrial fibrillation a minute later. I attempted a second time at 360 joules. Again, he converted back to sinus rhythm, but lasted in sinus rhythm for 30 seconds. The plan at this stage is to continue with Cardizem, heparin, switch him to oral anticoagulant. Continue heart rate with Cardizem and see if amiodarone would help him keep in sinus rhythm. We should probably consider another attempted cardioversion 3 weeks from now or have an orthodontist assistant see him for possible atrial fibrillation ablation. MMODL / IJN: [id number] /
[2019-04-26] MEDS: APIXABAN 5 MG TAB PO SCH (20:14)
[2019-04-26] MEDS: SODIUM CHLORIDE 0.9% 1,000 ML IV SCH ×2 (20:15→22:36)
[2019-04-26] MEDS: DILTIAZEM 125 MG in SODIUM CHLORIDE 0.9% 100 ML IV SCH (22:34)
[2019-04-27] MEDS: SODIUM CHLORIDE 0.9% 1,000 ML IV SCH ×2 (08:55→15:39)
[2019-04-27] MEDS: AMIODARONE 200 MG TAB PO SCH ×2 (08:58→20:08)
[2019-04-27] MEDS: APIXABAN 5 MG TAB PO SCH (08:58)
[2019-04-27] MEDS: METOPROLOL TARTRATE 50 MG TAB PO SCH (08:58)
[2019-04-27] MEDS: ASPIRIN 81 MG PO SCH (08:58)
[2019-04-27] MEDS: ATORVASTATIN 40 MG TAB PO SCH (08:58)
[2019-04-27 12:04] LABS: Appearance,Urine Clear (Clear); Bilirubin,Urine Negative (Negative); Blood,Urine Negative (Negative); Color,Urine Yellow; Glucose,Urine (UA) Negative (Negative); Ketones,Urine Negative (Negative); Leukocyte Esterase,Urine Negative (Negative); Nitrite,Urine Negative (Negative); Protein,Urine Negative (Negative); Specific Gravity,Urine 1.024 (1.001-1.035)
[2019-04-27] MEDS ORDERED: METOPROLOL TARTRATE 50 MG TAB PO STA (12:14)
[2019-04-27] MEDS: LISINOPRIL 20 MG TAB PO SCH (12:24)
[2019-04-27] MEDS: DILTIAZEM 125 MG in SODIUM CHLORIDE 0.9% 100 ML IV SCH (12:27)
--- NOTE | 2019-04-27 12:53 | P.PN ---
Subjective Progress Note Date: 04/27/19 This is a 63-year-old gentleman with history of hypertension, hyperlipidemia, peripheral vascular disease, carotid stenosis status post right carotid endarterectomy, coronary artery disease with prior bypass surgery, atrial fibrillation with prior cardioversion and subsequent ablation, who presen chiquis to the hospital with symptoms of palpitations and associated shortness of breath. The patient was seen in consultation yesterday by Dr. Donnelly, the time of our examination this morning the patient continued to be in atrial fibrillation and his heart rate was in the 1:30 to 140 range in spite of being on amiodarone, Cardizem, and beta claudio. Dr. Erickson who is his actual glaze handler is out of town, Dr. Donenlly spoke with the patient regarding undergoing elective cardioversion today. Risks and the benefits were explained to the patient in detail and he was willing to proceed. Patient is quite short of breath with his A. fib heart rate being up. Patient was complaining this morning is significant swelling in his bilateral scrotal and penis area. 04/27/2019 The patient was seen and examined this morning, he takes continues to be quite symptomatic, his heart rate earlier this morning in the 130s, does seem to come down to the 110 range after his medications but with ambulation it still goes up. We will increase his dose of beta claudio to 100 mg daily given the additional 50 mg now. Blood Pressure 128/70, 92% on room air. Objective - Vital Signs Vital signs: Vital Signs Temp 98.2 F 04/27/19 11:48 Pulse 100 04/27/19 11:48 Resp 20 04/27/19 11:48 BP 129/75 04/27/19 11:48 Pulse Ox 92 L 04/27/19 11:48 Intake & Output 04/26/19 04/27/19 04/27/19 18:59 06:59 18:59 Intake Total 323.112 790 365 Output Total 1100 525 Balance -776.888 790 -160 Weight 98.2 kg Intake: IV 100 70 Diltiazem 125 mg In 70 Sodium Chloride 0.9% 100 ml @ 10 MG/HR 10 mls/hr IV .[id number] [facility] Rx#: [id number] Intake, IV Titration 223.112 125 Amount Diltiazem 125 mg In 125 125 Sodium Chloride 0.9% 100 ml @ 10 MG/HR 10 mls/hr IV .[id number] [facility] Rx#: [id number] Heparin Sod,Pork in 0.45% 98.112 NaCl 25,000 unit In 0.45 % NaCl 1 250ml.bag @ 10. 113 UNITS/KG/HR 10 mls/hr IV .Q24H [facility] Rx#: [id number] Oral 720 240 Output: Urine 1100 525 Other: Voiding Method Toilet - Exam PHYSICAL EXAMINATION: GENERAL: 43-year-old gentleman in no acute distress at the time of my examination HEENT: Head is atraumatic, normocephalic. Pupils equal, round. Sclera anicteric. Conjunctiva are clear. Mucous membranes of the mouth are moist. Neck is supple. There is no elevated jugular venous pressure.] bruit is heard. HEART EXAMINATION: Heart S1 and S2 irregularly irregular a systolic murmur is heard CHEST EXAMINATION: Lungs are clear to auscultation and precussion. No chest wall tenderness is noted on palpation or with deep breathing. ABDOMEN: Soft, nontender. Bowel sounds are heard. No organomegaly noted. EXTREMITIES: 2+ peripheral pulses with 1+ evidence of peripheral edema and no calf tenderness noted. NEUROLOGIC [patient is awake, alert and oriented 3 - Labs CBC & Chem 7: 04/25/19 12:05 04/25/19 12:05 Labs: Abnormal Lab Results - Last 24 Hours (Table) 04/26/19 Range/Units 11:37 APTT 51.1 H (22.0-30.0) sec Assessment and Plan Plan: Assessment and plan #1 persistent atrial fibrillation with rapid ventricular response #2 coronary artery disease and prior bypass surgery #3 carotid stenosis status post carotid endarterectomy #4 peripheral vascular disease #5 history of paroxysmal atrial fibrillation status post prior cardioversion and ablation #6 hypertension #7 hyperlipidemia Plan Patient did have attempt at cardioversion but went back into atrial fibrillation a couple different times. We will increase the dose of beta claudio today to try to maintain adequate heart rate. Further recommendations to follow. DNP note has been reviewed, I agree with a documented findings and plan of care. Patient was seen and examined.
--- NOTE | 2019-04-27 14:00 | P.PN ---
Subjective Progress Note Date: 04/27/19 This is a 63-year-old male patient of Dr. Gutierrez and Dr. Erickson with past medical history of coronary artery disease with history of three-vessel CABG in 2015, chronic atrial fibrillation status post cardioversion and ablation, peripheral vascular disease status post left carotid endarterectomy a nd bilateral lower leg procedures, hypertension, hyperlipidemia, lung cancer status post lobectomy for stage I non-small cell lung cancer, obstructive sleep apnea waiting for CPAP. The patient states that 4 days ago he was starting to have shortness of breath he doubled up on his beta claudio today yesterday. He was having palpitations as well but despite increasing his beta claudio he continued to have palpitations and shortness of breath. He denies any chest pain, abdominal pain. No nausea or vomiting. He denies any lightheadedness or dizziness. Patient also complains of scrotal edema. He states onset was 2 days ago when he had some discomfort in the right side. In the shower yesterday morning he could feel that the right side was swollen and by today it had spread and is now very tender. Patient presented to [facility] emergency center with heart rate of 138. EKG was atrial fibrillation at rate of 135 bpm with no acute ST changes. Chest x-ray showed mild pulmonary edema. Patient was started on Cardizem bolus followed by Cardizem drip and heparin drip. Ultrasound of scrotum showed a hydrocele on the right side. Patient continued to be tachycardic and started on amiodarone with plan for cardioversion today. 04/27: underwent cardioversion yesterday but unsuccessful and converted back to atrial fibrillation after only brief time. Patient is currently running A. fib at 120 bpm. Cardiology to contact Dr. Singh regarding possible ablatio n. Patient states that he has shortness of breath getting up to the bathroom. He denies any cough or sputum production. Xarelto started today. He is currently on oral amiodarone 400 mg twice daily, Cardizem drip at 10 mg per hour, Lopressor 100 mg daily. The patient's is at the bedside and very demanding. All questions were answered. Echocardiogram report pending. Review of Systems Constitutional: Denies chills, Denies fever, Denies poor appetite, Denies weakness Eyes: denies blurred vision, denies pain Ears, nose, mouth and throat: Denies dysphagia, Denies headache, Denies nasal congestion, Denies nasal discharge, Denies sore throat Cardiovascular: Reports irregular heart beat, Reports palpitations, Reports shortness of breath, Denies chest pain, Denies decreased exercise tolerance, Denies dyspnea on exertion, Denies lightheadedness, Denies syncope Respiratory: Reports dyspnea, Reports sleep apnea, Denies congestion, Denies cough, Denies cough with sputum, Denies excessive sputum, Denies hemoptysis, Denies home oxygen, Denies wheezing Gastrointestinal: Denies abdominal pain, Denies diarrhea, Denies loss of appetite, Denies nausea, Denies vomiting Genitourinary: Reports genital pain, Reports testicular pain, Denies dysuria, Denies urinary retention Musculoskeletal: Denies muscle weakness, Denies myalgias Integumentary: Denies pruritus, Denies rash, Denies wounds Neurological: Denies change in mentation, Denies change in speech, Denies numbness, Denies seizures, Denies weakness Psychiatric: Denies anxiety, Denies depression Endocrine: Denies fatigue, Denies weight change Objective - Vital Signs Vital signs: Vital Signs Temp 98.0 F 04/27/19 04:00 Pulse 126 H 04/27/19 04:00 Resp 18 04/27/19 04:00 BP 121/75 04/27/19 04:00 Pulse Ox 95 04/27/19 04:00 Intake & Output 04/26/19 04/27/19 04/27/19 18:59 06:59 18:59 Intake Total 323.112 790 Output Total 1100 525 Balance -776.888 790 -525 Weight 98.2 kg Intake: IV 100 70 Diltiazem 125 mg In 70 Sodium Chloride 0.9% 100 ml @ 10 MG/HR 10 mls/hr IV .[id number] [facility] Rx#: [id number] Intake, IV Titration 223.112 Amount Diltiazem 125 mg In 125 Sodium Chloride 0.9% 100 ml @ 10 MG/HR 10 mls/hr IV .[id number] [facility] Rx#: [id number] Heparin Sod,Pork in 0.45% 98.112 NaCl 25,000 unit In 0.45 % NaCl 1 250ml.bag @ 10. 113 UNITS/KG/HR 10 mls/hr IV .Q24H [facility] Rx#: [id number] Oral 720 Output: Urine 1100 525 - Exam Gen: This is a 63-year-old male. Patient is resting in bed and appears to be comfortable and in no acute distress. at bedside. HEENT: Head is atraumatic, normocephalic. Pupils equal, round. Sclerae is anicteric. NECK: Supple. No JVD. No lymphadenopathy. No thyromegaly. LUNGS: Clear to auscultation. No wheezes or rhonchi. No intercostal retractions. HEART: Irregularly irregular, systolic murmur. ABDOMEN: Soft. Bowel sounds are present. No masses. No tenderness. Patient has significant scrotal edema bilaterally EXTREMITIES: 1+ pedal edema bilaterally. No calf tenderness. Dorsalis pedis +2 bilaterally NEUROLOGICAL: Patient is awake, alert and oriented x3. Cranial nerves 2 through 12 are grossly intact. - Labs CBC & Chem 7: 04/25/19 12:05 04/25/19 12:05 Labs: Abnormal Lab Results - Last 24 Hours (Table) 04/26/19 Range/Units 11:37 APTT 51.1 H (22.0-30.0) sec Assessment and Plan Plan: 1. Atrial fibrillation with RVR. Patient is currently on Cardizem drip at 10 mg/hr, amiodarone 400 mg oral twice daily, Lopressor 100 mg daily, Xarelto to start tonight. Status post cardioversion yesterday. That was unsuccessful and patient immediately transition back to A. fib. 2. Chronic atrial fibrillation. Continue as in #1 3. Coronary artery disease status post three-vessel CABG. Continue aspirin 81 mg daily, atorvastatin 40 mg daily. 4. History of carotid stenosis status post left carotid endarterectomy. Continue aspirin and statin. 5. Peripheral vascular disease status post multiple lower extremity procedures, stable. Continue aspirin and statin. 6. Hypertension. Continue Cardizem drip, amiodarone, Lopressor and lisinopril. Hold hydralazine, amlodipine and Lasix. 7. Hyperlipidemia. Continue Lipitor 8. History of lung cancer status post lobectomy, stable. 9. Obstructive sleep apnea, awaiting for CPAP to be arranged, stable. 10. Scrotal edema secondary to right hydrocele. Consult with urology appreci ed. 11. GI prophylaxis. Pepcid. 12. DVT prophylaxis. Xarelto. Discharge plan: Home Impression and plan of care have been directed as dictated by the signing physician. Sissy Mario nurse practitioner acting as scribe for signing physician.
[2019-04-27] MEDS: RIVAROXABAN 20 MG TAB PO SCH (17:41)
--- NOTE | 2019-04-27 18:00 | ECHOF ---
Referral Reason:history of CHF MEASUREMENTS -------- HEIGHT: 175.3 cm WEIGHT: 98.0 kg BP: RVIDd: 3.6 cm (< 3.3) IVSd: 1.6 cm (0.6 - 1.1) LVIDd: 4.5 cm (3.9 - 5.3) LVPWd: 1.6 cm (0.6 - 1.1) IVSs: 1.7 cm LVIDs: 4.3 cm LVPWs: 1.5 cm LAESV Index (A-L): 53.78 ml/m Ao Diam: 3.1 cm (2.0 - 3.7) AV Cusp: 2.1 cm (1.5 - 2.6) LA Diam: 4.6 cm (2.7 - 3.8) RAP: 15.00 mmHg RVSP: 43.41 mmHg FINDINGS -------- Atrial fibrillation. This was a technically good study. The left ventricular size is normal. There is moderate concentric left ventricular hypertrophy. T here is severe global hypokinesis of LV . Overall left ventricular systolic function is severely im paired with, an EF between 20 - 25 %. Left ventricular fillimg pressure cannot be estimated due to Atrial fibrillation. The right ventricle is mildly enlarged. LA is severely dilated >40 ml/m2 RA appears enlarged. The aortic valve is trileaflet and appears structurally normal. The mitral valve is normal. Moderate mitral regurgitation is present. The tricuspid valve appears structurally normal. Mild tricuspid regurgitation present. There is b orderline pulmonary hypertension. The right ventricular systolic pressure, as measured by Doppler, is 43.41mmHg. There is no pulmonic regurgitation present. The aortic root size is normal. The inferior vena cava is mildly dilated. There is no pericardial effusion. CONCLUSIONS -------- 1. Atrial fibrillation. 2. This was a technically good study. 3. The left ventricular size is normal. 4. There is moderate concentric left ventricular hypertrophy. 5. There is severe global hypokinesis of LV . 6. Overall left ventricular systolic function is severely impaired with, an EF between 20 - 25 %. 7. Left ventricular fillimg pressure cannot be estimated due to Atrial fibrillation. 8. The right ventricle is mildly enlarged. 9. LA is severely dilated >40 ml/m2 10. RA appears enlarged. 11. The aortic valve is trileaflet and appears structurally normal. 12. The mitral valve is normal. 13. Moderate mitral regurgitation is present. 14. The tricuspid valve appears structurally normal. 15. Mild tricuspid regurgitation present. 16. There is borderline pulmonary hypertension. 17. The right ventricular systolic pressure, as measured by Doppler, is 43.41mmHg. 18. There is no pulmonic regurgitation present. 19. The aortic root size is normal. 20. The inferior vena cava is mildly dilated. 21. There is no pericardial effusion. PAINTER AND DECORATOR APPRENTICE: Kimberly Skinner RDCS
[2019-04-28] MEDS: ASPIRIN 81 MG PO SCH (08:04)
[2019-04-28] MEDS: FAMOTIDINE 20 MG TAB PO SCH (08:04)
[2019-04-28] MEDS: METOPROLOL TARTRATE 50 MG TAB PO SCH ×2 (08:04→20:50)
[2019-04-28] MEDS: AMIODARONE 200 MG TAB PO SCH ×2 (08:05→20:50)
[2019-04-28] MEDS: ATORVASTATIN 40 MG TAB PO SCH (08:05)
[2019-04-28] MEDS ORDERED: METOPROLOL TARTRATE 50 MG TAB PO SCH (09:00)
--- NOTE | 2019-04-28 11:00 | ECHOF ---
Referral Reason:assess lvf/limited MEASUREMENTS -------- HEIGHT: 182.9 cm WEIGHT: 104.3 kg BP: RVIDd: 3.8 cm (< 3.3) IVSd: 1.0 cm (0.6 - 1.1) LVIDd: 4.6 cm (3.9 - 5.3) LVPWd: 1.1 cm (0.6 - 1.1) IVSs: 1.2 cm LVIDs: 4.5 cm LVPWs: 1.2 cm IVSd: 0.7 cm (0.6 - 1.1) LVIDd: 5.7 cm (3.9 - 5.3) LVPWd: 0.9 cm (0.6 - 1.1) IVSs: 0.9 cm LVIDs: 5.1 cm LVPWs: 1.0 cm EDV(Teich): 162 ml ESV(Teich): 124 ml EF(Teich): 23 % %FS: 11 % SV(Teich): 38 ml FINDINGS -------- Sinus rhythm. Limited Study for LV funtion Left ventricular wall thickness is normal. There is moderate global hypokinesis of LV . Overall l eft ventricular systolic function is moderately impaired with, an EF between 35 - 40 %. Anterseptal Hypokinesis Paradoxical motion of the right ventricular septum is consistent with post operative status. CONCLUSIONS -------- 1. Sinus rhythm. 2. Limited Study for LV function. 3. Left ventricular wall thickness is normal. 4. Anterseptal Hypokinesis MACHINE STUFFER AUTOMATIC: Kimberly Skinner RDCS
[2019-04-28] MEDS ORDERED: FUROSEMIDE 10 MG/ML 4 ML VIAL IV STA (11:22)
[2019-04-28] MEDS: LISINOPRIL 20 MG TAB PO SCH (11:55)
--- NOTE | 2019-04-28 11:57 | XR ---
EXAMINATION TYPE: XR chest 2V DATE OF EXAM: 04/28/2019 COMPARISON: Prior chest 04/25/2019 HISTORY: Shortness of breath and congestion TECHNIQUE: Frontal and lateral views of the chest are obtained. FINDINGS: Patient is post median sternotomy and atrial appendage clipping placement. Aorta is dense. Cardiac mediastinal silhouette, pulmonary vascularity and krystal are stable. There is blunting the cos tophrenic angles on prior. No evident pneumothorax. There are overlying cardiac leads. Surgical clips again noted in the right neck. Some mild prominence of interstitium of questionable age. Small focus of lung herniation noted between the left fifth and sixth ribs laterally. IMPRESSION: Findings are similar to prior exam. Postop changes, possible small pleural effusion vers us chronic pleural reaction.Possible underlying interstitial lung disease rather than interstitial ed adia.
[2019-04-28] MEDS ORDERED: ACETAMINOPHEN TAB 325 MG TAB PO PRN (12:00)
--- NOTE | 2019-04-28 13:59 | P.PN ---
Subjective Progress Note Date: 04/28/19 This is a 63-year-old gentleman with history of hypertension, hyperlipidemia, peripheral vascular disease, carotid stenosis status post right carotid endarterectomy, coronary artery disease with prior bypass surgery, atrial fibrillation with prior cardioversion and subsequent ablation, who presen chiquis to the hospital with symptoms of palpitations and associated shortness of breath. The patient was seen in consultation yesterday by Dr. Donnelly, the time of our examination this morning the patient continued to be in atrial fibrillation and his heart rate was in the 1:30 to 140 range in spite of being on amiodarone, Cardizem, and beta claudio. Dr. Erickson who is his actual hemmer lockstitch is out of town, Dr. Donnelly spoke with the patient regarding undergoing elective cardioversion today. Risks and the benefits were explained to the patient in detail and he was willing to proceed. Patient is quite short of breath with his A. fib heart rate being up. Patient was complaining this morning is significant swelling in his bilateral scrotal and penis area. 04/27/2019 The patient was seen and examined this morning, he takes continues to be quite symptomatic, his heart rate earlier this morning in the 130s, does seem to come down to the 110 range after his medications but with ambulation it still goes up. We will increase his dose of beta claudio to 100 mg daily given the additional 50 mg now. Blood Pressure 128/70, 92% on room air. 04/28/2019 Patient converted this morning to normal sinus rhythm, he was somewhat symptomatic became quite lightheaded, in spite of the fact that he is in normal sinus rhythm he remains quite short of breath today. Initial echocardiogram that was performed here revealed an ejection fraction of 20-25%, this was done when his heart rate was significantly elevated. We did have them repeat an echo today, doing a limited study to assess LV function, ejection fraction remains reduced but is improved at 35-40%. Dr. Barba did have a lengthy discussion with the patient, stating that he does not meet requirements at this time for AICD implant. We will continue him to be on the amiodarone as well as a beta claudio, anticoagulation, given a dose of IV Lasix today in order a chest x-ray. Plan for possible discharge home in 24-48 hours if stable. Objective - Vital Signs Vital signs: Vital Signs Temp 97.6 F 04/28/19 11:30 Pulse 69 04/28/19 11:30 Resp 16 04/28/19 11:30 BP 122/98 04/28/19 11:30 Pulse Ox 96 04/28/19 11:30 Intake & Output 04/27/19 04/28/19 04/28/19 18:59 06:59 18:59 Intake Total 888 440 840 Output Total 525 2200 Balance 363 440 -1360 Weight 99.9 kg Intake: IV 240 80 Diltiazem 125 mg In 80 Sodium Chloride 0.9% 100 ml @ 10 MG/HR 10 mls/hr IV .[id number] [facility] Rx#: [id number] Sodium Chloride 0.9% 1, 160 80 000 ml @ 20 mls/hr IV . Q24H [facility] Rx#:[id number] Intake, IV Titration 168 Amount Diltiazem 125 mg In 168 Sodium Chloride 0.9% 100 ml @ 10 MG/HR 10 mls/hr IV .[id number] [facility] Rx#: [id number] Oral 480 360 840 Output: Urine 525 2200 Other: Voiding Method Toilet Toilet Toilet Urinal # Voids 4 1 # Bowel Movements 3 - Exam PHYSICAL EXAMINATION: GENERAL: 43-year-old gentleman in no acute distress at the time of my examination HEENT: Head is atraumatic, normocephalic. Pupils equal, round. Sclera anicteric. Conjunctiva are clear. Mucous membranes of the mouth are moist. Neck is supple. There is no elevated jugular venous pressure.] bruit is heard. HEART EXAMINATION: Heart S1 and S2 irregularly irregular a systolic murmur is heard CHEST EXAMINATION: Lungs are clear to auscultation and precussion. No chest wall tenderness is noted on palpation or with deep breathing. ABDOMEN: Soft, nontender. Bowel sounds are heard. No organomegaly noted. EXTREMITIES: 2+ peripheral pulses with 1+ evidence of peripheral edema and no calf tenderness noted. NEUROLOGIC [patient is awake, alert and oriented 3 - Labs CBC & Chem 7: 04/25/19 12:05 04/25/19 12:05 Assessment and Plan Plan: Assessment and plan #1 persistent atrial fibrillation with rapid ventricular response #2 coronary artery disease and prior bypass surgery #3 carotid stenosis status post carotid endarterectomy #4 peripheral vascular disease #5 history of paroxysmal atrial fibrillation status post prior cardioversion and ablation #6 hypertension #7 hyperlipidemia Plan Patient is currently in a normal sinus rhythm. We will continue amiodarone along with beta claudio. Give the patient a dose of IV Lasix today and request a chest x-ray be performed. Repeat echocardiogram with Doppler study revealed an ejection fraction of 35-40%. Dr. Donnelly did have a discussion with the patient today explaining that at this point in time he does not meet criteria for AICD. We will continue to monitor the patient for another 24-48 hours. DNP note has been reviewed, I agree with a documented findings and plan of care. Patient was seen and examined.
--- NOTE | 2019-04-28 15:24 | P.PN ---
Subjective Progress Note Date: 04/28/19 This is a 63-year-old male patient of Dr. Gutierrez and Dr. Erickson with past medical history of coronary artery disease with history of three-vessel CABG in 2015, chronic atrial fibrillation status post cardioversion and ablation, peripheral vascular disease status post left carotid endarterectomy a nd bilateral lower leg procedures, hypertension, hyperlipidemia, lung cancer status post lobectomy for stage I non-small cell lung cancer, obstructive sleep apnea waiting for CPAP. The patient states that 4 days ago he was starting to have shortness of breath he doubled up on his beta claudio today yesterday. He was having palpitations as well but despite increasing his beta claudio he continued to have palpitations and shortness of breath. He denies any chest pain, abdominal pain. No nausea or vomiting. He denies any lightheadedness or dizziness. Patient also complains of scrotal edema. He states onset was 2 days ago when he had some discomfort in the right side. In the shower yesterday morning he could feel that the right side was swollen and by today it had spread and is now very tender. Patient presented to [facility] emergency center with heart rate of 138. EKG was atrial fibrillation at rate of 135 bpm with no acute ST changes. Chest x-ray showed mild pulmonary edema. Patient was started on Cardizem bolus followed by Cardizem drip and heparin drip. Ultrasound of scrotum showed a hydrocele on the right side. Patient continued to be tachycardic and started on amiodarone with plan for cardioversion today. 04/27: underwent cardioversion yesterday but unsuccessful and converted back to atrial fibrillation after only brief time. Patient is currently running A. fib at 120 bpm. Cardiology to contact Dr. Singh regarding possible ablatio n. Patient states that he has shortness of breath getting up to the bathroom. He denies any cough or sputum production. Xarelto started today. He is currently on oral amiodarone 400 mg twice daily, Cardizem drip at 10 mg per hour, Lopressor 100 mg daily. The patient's is at the bedside and very demanding. All questions were answered. Echocardiogram report pending. 04/28: Patient converted into normal sinus rhythm last evening. Unfortunately, patient continues to have shortness of breath and not feeling any improvement. He has been started on IV Lasix 40 mg. Patient also continues to have scrotal edema without much improvement of this. Echocardiogram performed on April 27 oh patient was in atrial fibrillation revealed EF between 20 and 25%, borderline pulmonary hypertension, moderate mitral regurgitation, LA severely dilated greater than 40. A repeat limited echocardiogram done on April 28 reveals EF of 35-40%.Heart rate is currently controlled at 60s to 80s, afebrile, blood pressure 122/98, pulse ox 91% on room air. Anticipate possible discharge in the next 24-48 hours. Review of Systems Constitutional: Denies chills, Denies fever, Denies poor appetite, Denies weakness Eyes: denies blurred vision, denies pain Ears, nose, mouth and throat: Denies dysphagia, Denies headache, Denies nasal congestion, Denies nasal discharge, Denies sore throat Cardiovascular: Reports irregular heart beat, Reports palpitations, Reports shortness of breath, Denies chest pain, Denies decreased exercise tolerance, Denies dyspnea on exertion, Denies lightheadedness, Denies syncope Respiratory: Reports dyspnea, Reports sleep apnea, Denies congestion, Denies cough, Denies cough with sputum, Denies excessive sputum, Denies hemoptysis, Denies home oxygen, Denies wheezing Gastrointestinal: Denies abdominal pain, Denies diarrhea, Denies loss of appetite, Denies nausea, Denies vomiting Genitourinary: Reports genital pain, Reports testicular pain, Denies dysuria, Denies urinary retention Musculoskeletal: Denies muscle weakness, Denies myalgias Integumentary: Denies pruritus, Denies rash, Denies wounds Neurological: Denies change in mentation, Denies change in speech, Denies numbness, Denies seizures, Denies weakness Psychiatric: Denies anxiety, Denies depression Endocrine: Denies fatigue, Denies weight change Objective - Vital Signs Vital signs: Vital Signs Temp 97.6 F 04/28/19 11:30 Pulse 69 04/28/19 11:30 Resp 16 04/28/19 11:30 BP 122/98 04/28/19 11:30 Pulse Ox 96 04/28/19 11:30 Intake & Output 04/27/19 04/28/19 04/28/19 18:59 06:59 18:59 Intake Total 888 440 240 Output Total 525 800 Balance 363 440 -560 Weight 99.9 kg Intake: IV 240 80 Diltiazem 125 mg In 80 Sodium Chloride 0.9% 100 ml @ 10 MG/HR 10 mls/hr IV .[id number] [facility] Rx#: [id number] Sodium Chloride 0.9% 1, 160 80 000 ml @ 20 mls/hr IV . Q24H [facility] Rx#:[id number] Intake, IV Titration 168 Amount Diltiazem 125 mg In 168 Sodium Chloride 0.9% 100 ml @ 10 MG/HR 10 mls/hr IV .[id number] [facility] Rx#: [id number] Oral 480 360 240 Output: Urine 525 800 Other: Voiding Method Toilet Toilet Toilet Urinal # Voids 4 1 # Bowel Movements 3 - Exam Gen: This is a 63-year-old male. Patient is resting in bed and appears to be comfortable and in no acute distress. HEENT: Head is atraumatic, normocephalic. Pupils equal, round. Sclerae is anicteric. NECK: Supple. No JVD. No lymphadenopathy. No thyromegaly. LUNGS: Clear to auscultation. No wheezes or rhonchi. No intercostal retractions. HEART: Regular, systolic murmur. ABDOMEN: Soft. Bowel sounds are present. No masses. No tenderness. Patient has significant scrotal edema bilaterally EXTREMITIES: 1+ pedal edema bilaterally. No calf tenderness. Dorsalis pedis +2 bilaterally NEUROLOGICAL: Patient is awake, alert and oriented x3. Cranial nerves 2 through 12 are grossly intact. - Labs CBC & Chem 7: 04/25/19 12:05 04/25/19 12:05 Assessment and Plan Plan: 1. Atrial fibrillation with RVR, paroxysmal. Patient is currently in sinus rhythm Patient is currently on amiodarone 400 mg oral twice daily, Lopressor 50 mg twice daily, Xarelto 20 mg daily. Status post cardioversion yesterday. That was unsuccessful and patient immediately transition back to A. fib. 2. Paroxysmal atrial fibrillation. Continue as in #1 3. Coronary artery disease status post three-vessel CABG. Continue aspirin 81 mg daily, atorvastatin 40 mg daily. 4. History of carotid stenosis status post left carotid endarterectomy. Continue aspirin and statin. 5. Peripheral vascular disease status post multiple lower extremity procedures, stable. Continue aspirin and statin. 6. Hypertension. Continue amiodarone, Lopressor and lisinopril. Hold hydralazine, amlodipine. 7. Hyperlipidemia. Continue Lipitor 8. History of lung cancer status post lobectomy, stable. 9. Obstructive sleep apnea, awaiting for CPAP to be arranged, stable. 10. Scrotal edema secondary to moderate size right hydrocele. Consult with urology appreciated. Plan to reassess as an outpatient. 11. GI prophylaxis. Pepcid. 12. DVT prophylaxis. Xarelto. Discharge plan: Home in the next 24-48 hrs. Impression and plan of care have been directed as dictated by the signing physician. Sissy Mario nurse practitioner acting as scribe for signing physician.
[2019-04-28] MEDS: SODIUM CHLORIDE 0.9% 1,000 ML IV SCH (17:15)
[2019-04-28] MEDS: RIVAROXABAN 20 MG TAB PO SCH (17:24)
[2019-04-29] MEDS: ASPIRIN 81 MG PO SCH (09:19)
[2019-04-29] MEDS: LISINOPRIL 20 MG TAB PO SCH (09:19)
[2019-04-29] MEDS: AMIODARONE 200 MG TAB PO SCH (09:19)
[2019-04-29] MEDS: ATORVASTATIN 40 MG TAB PO SCH (09:19)
[2019-04-29] MEDS: FAMOTIDINE 20 MG TAB PO SCH (09:19)
[2019-04-29] MEDS: METOPROLOL TARTRATE 50 MG TAB PO SCH (09:19)
[2019-04-29 09:43] VITALS: RESP 19; TEMP 97.8
[2019-04-29] MEDS ORDERED: FUROSEMIDE 10 MG/ML 2 ML VIAL IV STA (09:49)
--- NOTE | 2019-04-29 09:56 | P.PN ---
Subjective Progress Note Date: 04/29/19 This is a 63-year-old gentleman with history of hypertension, hyperlipidemia, peripheral vascular disease, carotid stenosis status post right carotid endarterectomy, coronary artery disease with prior bypass surgery, atrial fibrillation with prior cardioversion and subsequent ablation, who prese nted to the hospital with symptoms of palpitations and associated shortness of breath. The patient was seen in consultation yesterday by Dr. Donnelly, the time of our examination this morning the patient continued to be in atrial fibrillation and his heart rate was in the 1:30 to 140 range in spite of being on amiodarone, Cardizem, and beta claudio. Dr. Erickson who is his actual finger buffs assembler is out of town, Dr. Donnelly spoke with the patient regarding undergoing elective cardioversion today. Risks and the benefits were explained to the patient in detail and he was willing to proceed. Patient is quite short of breath with his A. fib heart rate being up. Patient was complaining this morning is significant swelling in his bilateral scrotal and penis area. 04/27/2019 The patient was seen and examined this morning, he takes continues to be quite symptomatic, his heart rate earlier this morning in the 130s, does seem to come down to the 110 range after his medications but with ambulation it still goes up. We will increase his dose of beta claudio to 100 mg daily given the additional 50 mg now. Blood Pressure 128/70, 92% on room air. 04/28/2019 Patient converted this morning to normal sinus rhythm, he was somewhat symptomatic became quite lightheaded, in spite of the fact that he is in normal sinus rhythm he remains quite short of breath today. Initial echocardiogram that was performed here revealed an ejection fraction of 20-25%, this was done when his heart rate was significantly elevated. We did have them repeat an echo today, doing a limited study to assess LV function, ejection fraction remains reduced but is improved at 35-40%. Dr. Barba did have a lengthy discussion with the patient, stating that he does not meet requirements at this time for AICD implant. We will continue him to be on the amiodarone as well as a beta claudio, anticoagulation, given a dose of IV Lasix today in order a chest x-ray. Plan for possible discharge home in 24-48 hours if stable. 04/29: Patient denies having any chest pain, palpitations. He states his shortness of breath is significantly improved. He does have some mild shortness of breath with ambulation. Patient was given 1 dose of IV Lasix 40 mg yesterday morning and has diuresed well. Lower extremity edema and scrotal edema are all improving. Patient has been afebrile, heart rate 66, blood pressure 135/74, pulse ox 95% on room air. Patient has been in a sinus rhythm. AP chest x-ray reveals possible pleural effusion or chronic pleural reaction. Possible underlying interstitial lung disease. Patient will be given 1 dose of IV Lasix 20 mg prior to discharge. Patient is cleared for discharge from cardiology with plan for follow-up with Dr. Ericksno. Objective - Vital Signs Vital signs: Vital Signs Temp 97.8 F 04/29/19 08:00 Pulse 66 04/29/19 08:00 Resp 19 04/29/19 08:00 BP 135/74 04/29/19 08:00 Pulse Ox 95 04/29/19 08:00 Intake & Output 04/28/19 04/29/19 04/29/19 18:59 06:59 18:59 Intake Total 1200 400 Output Total 3550 1200 Balance -2350 -800 Weight 97.1 kg Intake: Oral 1200 400 Output: Urine 3550 1200 Other: Voiding Method Toilet Toilet Toilet Urinal Urinal Urinal # Voids 1 - Exam PHYSICAL EXAMINATION: GENERAL: 43-year-old gentleman in no acute distress at the time of my examination HEENT: Head is atraumatic, normocephalic. Pupils equal, round. Sclera anicteric. Conjunctiva are clear. Mucous membranes of the mouth are moist. Neck is supple. There is no elevated jugular venous pressure. HEART EXAMINATION: Heart S1 and S2 irregularly irregular a systolic murmur is heard CHEST EXAMINATION: Lungs are clear to auscultation and precussion. No chest wall tenderness is noted on palpation or with deep breathing. ABDOMEN: Soft, nontender. Bowel sounds are heard. No organomegaly noted. EXTREMITIES: 2+ peripheral pulses with trace left, 1+ right peripheral edema and no calf tenderness noted. NEUROLOGIC [patient is awake, alert and oriented 3 - Labs CBC & Chem 7: 04/25/19 12:05 04/25/19 12:05 Assessment and Plan Plan: Assessment and plan #1 persistent atrial fibrillation with rapid ventricular response, converted to sinus rhythm #2 coronary artery disease and prior bypass surgery #3 carotid stenosis status post carotid endarterectomy #4 peripheral vascular disease #5 history of paroxysmal atrial fibrillation status post prior cardioversion and ablation #6 hypertension #7 hyperlipidemia Plan Patient is currently in a normal sinus rhythm. We will continue amiodarone along with beta claudio. Patient has been started on Xarelto. One repeat dose of Lasix will be given prior to discharge. Repeat echocardiogram with Doppler study revealed an ejection fraction of 35-40%. Plan is for follow-up with Dr. Erickson in the next week. Nurse practitioner note has been reviewed, I agree with documented findings and plan of care. Patient was seen and examined.
[2019-04-29 11:52] VITALS: BP 130/82; PULSE 56
--- NOTE | 2019-04-29 13:20 | P.DS ---
Providers Date of admission: 04/25/19 13:55 Expected date of discharge: 04/29/19 Attending physician: Geraldine Jett Consults: 04/25/19 13:55 Consult Physician Urgent Consulting Provider: [facility] Consult Reason/Comments: A. fib with rapid ventricular response Do you want consulting provider notified?: Yes 04/26/19 11:02 Consult Physician Routine Consulting Provider: Pavan Macias Consult Reason/Comments: right hydrocele Do you want consulting provider notified?: Yes Primary care physician: Lannyshelly Gutierrez [facility] Course: This is a 63-year-old male patient of Dr. Gutierrez and Dr. Erickson with past medical history of coronary artery disease with history of three-vessel CABG in 2015, chronic atrial fibrillation status post cardioversion and ablation, peripheral vascular disease status post left carotid endarterectomy and bilateral lower leg procedures, hypertension, hyperlipidemia, lung cancer status post lobectomy for stage I non-small cell lung cancer, obstructive sleep apnea waiting for CPAP. The patient states that 4 days ago he was starting to have shortness of breath he doubled up on his beta claudio today yesterday. He was having palpitations as well but despite increasing his beta claudio he continued to have palpitations and shortness of breath. He denies any chest pain, abdominal pain. No nausea or vomiting. He denies any lightheadedness or dizziness. Patient also complains of scrotal edema. He states onset was 2 days ago when he had some discomfort in the right side. In the shower yesterday morning he could feel that the right side was swollen and by today it had spread and is now very tender. Patient presented to [facility] emergency center with heart rate of 138. EKG was atrial fibrillation at rate of 135 bpm with no acute ST changes. Chest x-ray showed mild pulmonary edema. Patient was started on Cardizem bolus followed by Cardizem drip and heparin drip. Ultrasound of scrotum showed a hydrocele on the right side. Patient continued to be tachycardic and started on amiodarone with plan for cardioversion today. 04/27: underwent cardioversion yesterday but unsuccessful and converted back to atrial fibrillation after only brief time. Patient is currently running A. fib at 120 bpm. Cardiology to contact Dr. Singh regarding possible ablation. Patient states that he has shortness of breath getting up to the bathroom. He denies any cough or sputum production. Xarelto started today. He is currently on oral amiodarone 400 mg twice daily, Cardizem drip at 10 mg per hour, Lopressor 100 mg daily. The patient's is at the bedside and very demanding. All questions were answered. Echocardiogram report pending. 04/28: Patient converted into normal sinus rhythm last evening. Unfortunately, patient continues to have shortness of breath and not feeling any improvement. He has been started on IV Lasix 40 mg. Patient also continues to have scrotal edema without much improvement of this. Echocardiogram performed on April 27 oh patient was in atrial fibrillation revealed EF between 20 and 25%, borderline pulmonary hypertension, moderate mitral regurgitation, LA severely dilated greater than 40. A repeat limited echocardiogram done on April 28 reveals EF of 35-40%.Heart rate is currently controlled at 60s to 80s, afebrile, blood pressure 122/98, pulse ox 91% on room air. Anticipate possible discharge in the next 24-48 hours. 04/29: Patient denies having any chest pain, palpitations. He states his shortness of breath is significantly improved. He does have some mild shortness of breath with ambulation. Patient was given 1 dose of IV Lasix 40 mg yesterday morning and has diuresed well. Lower extremity edema and scrotal edema are all improving. Patient has been afebrile, heart rate 66, blood pressure 135/74, pulse ox 95% on room air. Patient has been in a sinus rhythm. AP chest x-ray reveals possible pleural effusion or chronic pleural reaction. Possible underlying interstitial lung disease. Patient has received 1 dose of IV Lasix 20 mg this morning. Patient has been cleared for discharge from cardiology with plan for follow-up with Dr. Erickson. Patient will be discharged home today in stable condition. Discharge diagnoses: 1. Atrial fibrillation with RVR, paroxysmal. Patient is currently in sinus rhythm. 2. Paroxysmal atrial fibrillation. 3. Coronary artery disease status post three-vessel CABG. 4. History of carotid stenosis status post left carotid endarterectomy. 5. Peripheral vascular disease status post multiple lower extremity procedures, stable. 6. Hypertension. 7. Hyperlipidemia. 8. History of lung cancer status post lobectomy, stable. 9. Obstructive sleep apnea, awaiting for CPAP to be arranged, stable. 10. Scrotal edema secondary to moderate size right hydrocele. Discharge plan: Home Impression and plan of care have been directed as dictated by the signing physician. Sissy Mario nurse practitioner acting as scribe for signing physician. Patient Condition at Discharge: Good Plan - Discharge Summary Discharge Rx Participant: No New Discharge Prescriptions: New Rivaroxaban [Xarelto] 20 mg PO W/SUPPER #30 tab Amiodarone [Cordarone] 200 mg PO BID #60 tab Continue Cyanocobalamin (Vitamin B-12) [Vitamin B-12] 1,000 mcg PO DAILY Potassium Chloride [Klor-Con 20] 20 meq PO DAILY [place]-3 Fatty Acids [[place]-3] 1,000 mg PO DAILY Furosemide [Lasix] 20 mg PO DAILY Enalapril [Vasotec] 20 mg PO DAILY Atorvastatin [Lipitor] 40 mg PO DAILY Ascorbic Acid/Multivit-Min [Emergen-C 1,000 mg Packet] 1,000 mg PO DAILY Metoprolol Tartrate [Lopressor] 50 mg PO DAILY Discontinued hydrALAZINE HCL [Apresoline] 100 mg PO DAILY amLODIPine [Norvasc] 10 mg PO DAILY Discharge Medication List Ascorbic Acid/Multivit-Min [Emergen-C 1,000 mg Packet] 1,000 mg PO DAILY 04/25/19 [History] Atorvastatin [Lipitor] 40 mg PO DAILY 04/25/19 [History] Cyanocobalamin (Vitamin B-12) [Vitamin B-12] 1,000 mcg PO DAILY 04/25/19 [History] Enalapril [Vasotec] 20 mg PO DAILY 04/25/19 [History] Furosemide [Lasix] 20 mg PO DAILY 04/25/19 [History] Metoprolol Tartrate [Lopressor] 50 mg PO DAILY 04/25/19 [History] [place]-3 Fatty Acids [[place]-3] 1,000 mg PO DAILY 04/25/19 [History] Potassium Chloride [Klor-Con 20] 20 meq PO DAILY 04/25/19 [History] Rivaroxaban [Xarelto] 20 mg PO W/SUPPER #30 tab 04/28/19 [Rx] Amiodarone [Cordarone] 200 mg PO BID #60 tab 04/29/19 [Rx] Follow up Appointment(s)/Referral(s): Jo-Ann Erickson MD [STAFF PHYSICIAN] - 1 Week Dean Barraza MD [STAFF PHYSICIAN] - 2 Weeks Geraldine Jett MD [STAFF PHYSICIAN] - 1 Week Patient Instructions/Handouts: A-fib (Atrial Fibrillation) (DC), Safe Use of An ticoagulants (DC), Cardioversion (DC) Activity/Diet/Wound Care/Special Instructions: pts 30 day supply of Xarelto is filled for free in [facility] pharmacy. Discharge Disposition: HOME SELF-CARE
--- NOTE | 2019-05-04 01:44 | CDI ---
Documentation Clarification Form Date: 05/04/2019 From: Jason Wheat Phone: If you have a question about this query, please contact Stefani Reyes, Special Procedures Technologist at [phone] between 8am and 5pm. Admit Date: 04/25/2019 Discharge Date: 04/29/2019 Patient Name: Maurice Aparicio Visit Number: [id number] ATTENTION: The Clinical Documentation Specialists (CDI) and [facility] Coding Staff appreciate your assistance in clarifying documentation. Please respond to the clarification below the line at the bottom and electronically sign. The CDI & [facility] Coding staff will review the response and follow-up if needed. Please note: Queries are made part of the Legal Health Record. If you have any questions, please contact the author of this message via ITS. Dear Geraldine Patel., CHF is documented in the 04/[address] Freda helton as "Acute onset congestive heart failure, probably diastolic". History/Risk Factors: Atrial Fibrillation, Pulmonary hypertension,COPD. VS/Pulse OX: 98 BNP: 1260 Echocardiogram Results:Overall left ventricular systolic function is severely impaired with, an EF between 20 - 25 %. Chest X Ray: Correlate for CHF exacerbation as there is mild cardiomegaly with suspected mild central vascular congestion and interstitial edema and small to tiny left greater than right pleural effusions. Lower extremity edema Treatment: IV LASIX. In your professional opinion, can you please clarify the acuity and type of CHF if known? Systolic Heart Failure: Acute Chronic Acute on Chronic Diastolic Heart Failure: Acute Chronic Acute on Chronic Other, please specify ___Acute systolic heart failure. MTDD
== END 2019-04-29 14:24 | disposition home or self-care (01) | DRG 308 ==
LOC: EC 11:48 → 3SCARD 13:55
PROVIDERS: ADMIT Internal Medicine; ATTEND Internal Medicine
PROC: 5A2204Z Restoration of Cardiac Rhythm, Single (ICD-10-PCS; principal; 2019-04-26 10:45)
PROC: B246ZZ4 Ultrasonography of Right and Left Heart, Transesophageal (ICD-10-PCS; principal; 2019-04-26 10:45)
DX: I48.19 Other persistent atrial fibrillation (principal); I50.21 Acute systolic (congestive) heart failure; I27.20 Pulmonary hypertension, unspecified; Z96.653 Presence of artificial knee joint, bilateral; J44.9 Chronic obstructive pulmonary disease, unspecified; I73.9 Peripheral vascular disease, unspecified; I11.0 Hypertensive heart disease with heart failure; I65.29 Occlusion and stenosis of unspecified carotid artery; N50.89 Other specified disorders of the male genital organs; N43.3 Hydrocele, unspecified; K40.90 Unilateral inguinal hernia, without obstruction or gangrene, not specified as recurrent; E78.5 Hyperlipidemia, unspecified; G47.33 Obstructive sleep apnea (adult) (pediatric); I25.10 Atherosclerotic heart disease of native coronary artery without angina pectoris; I34.0 Nonrheumatic mitral (valve) insufficiency; I25.2 Old myocardial infarction; Z79.82 Long term (current) use of aspirin; Z79.899 Other long term (current) drug therapy; Z80.8 Family history of malignant neoplasm of other organs or systems; Z82.49 Family history of ischemic heart disease and other diseases of the circulatory system; Z85.118 Personal history of other malignant neoplasm of bronchus and lung; Z87.891 Personal history of nicotine dependence; Z90.2 Acquired absence of lung [part of]; Z95.1 Presence of aortocoronary bypass graft
CPT/HCPCS: 36415; 71046; 76870; 80053; 80061; 81001; 81003; 83735; 83880; 84484; 85025; 85610; 85730; 92960; 93005; 93306; 93308; 93312; 93320; 93325; 93975; 96365; 96366; 96368; 96376; 99291

== ENCOUNTER → 2019-05-26 | Outpatient (CLI) | payer MEDICARE ==
[2019-05-26 16:24] LABS: African American GFR (CKD) 51.6 (60.0-200.0); Albumin 4.4 g/dL (3.80-4.90); Albumin/Globulin Ratio 2.1 (1.60-3.17); Anion Gap 7.6 mmol/L (4.00-12.00); BUN/Creat Ratio 15.63 Ratio (12.00-20.00); Calcium 9.4 mg/dL (8.7-10.3); Carbon Dioxide 30.4 mmol/L (21.6-31.8); Chol/HDL Ratio 2.63; Globulin 2.1 g/dL (1.6-3.3); Non-African American GFR(CKD) 44.5 (60.0-200.0); Potassium 4.2 mmol/L (3.5-5.5); Total Bilirubin 0.6 mg/dL (0.3-1.2); Total Protein 6.5 g/dL (6.2-8.2)
== END | disposition home or self-care (01) ==
LOC: LABWHC1 08:28
PROVIDERS: ATTEND Internal Medicine Interventional Cardiology
DX: E78.2 Mixed hyperlipidemia (principal); D48.1 Neoplasm of uncertain behavior of connective and other soft tissue; E03.2 Hypothyroidism due to medicaments and other exogenous substances
CPT/HCPCS: 36415; 80053; 80061; 84443

== ENCOUNTER → 2019-08-29 | Outpatient (CLI) | payer MEDICARE | END | disposition home or self-care (01) | LOC: LABWHC1 11:05 | PROVIDERS: ATTEND Internal Medicine Clinical Cardiac Electrophysiology | DX: Z11.59 Encounter for screening for other viral diseases (principal) ==

== ENCOUNTER 2019-08-31 08:27 | Day surgery (SDC) | payer MEDICARE ==
[2019-08-29 15:34] VITALS: BMI 28.8
[2019-08-31] MEDS ORDERED: SODIUM CHLORIDE 0.9% 1,000 ML IV ONE (09:47)
[2019-08-31 10:01] LABS: Anisocytosis Slight; Basophils # (A) 0.1 k/uL (0-0.2); Basophils % (A) 1 %; Eosinophils # (A) 0.2 k/uL (0-0.7); Eosinophils % (A) 3 %; HCT 49.2 % (39.0-53.0); HGB 16.5 gm/dL (13.0-17.5); Lymphocytes # (A) 1.6 k/uL (1.0-4.8); Lymphocytes % (A) 23 %; MCH 30.7 pg (25.0-35.0); MCHC 33.5 g/dL (31.0-37.0); MCV 91.7 fL (80.0-100.0); Mean Platelet Volume 7.6; Monocytes # (A) 0.4 k/uL (0-1.0); Monocytes % (A) 7 %; Neutrophils # (A) 4.3 k/uL (1.3-7.7); Neutrophils % (A) 64 %; Platelet Count 161 k/uL (150-450); RBC 5.36 m/uL (4.30-5.90); RDW 16.1 % (11.5-15.5); WBC 6.7 k/uL (3.8-10.6)
[2019-08-31 10:08] LABS: INR 3.7 (<1.2)
[2019-08-31 10:15] LABS: African American GFR (CKD) >90 (>60 ml/min/1.73 sqM); Anion Gap 5 mmol/L; Blood Urea Nitrogen 14 mg/dL (9-20); Calcium 8.9 mg/dL (8.4-10.2); Carbon Dioxide 26 mmol/L (22-30); Chloride 107 mmol/L (98-107); Glucose 94 mg/dL (74-99); Non-African American GFR(CKD) 86 (>60 ml/min/1.73 sqM); Sodium 138 mmol/L (137-145)
[2019-08-31 10:25] LABS: Potassium 4.6 mmol/L (3.5-5.1)
[2019-08-31] MEDS ORDERED: PROPOFOL 10 MG/ML 20 ML VIAL IV ONE (11:21)
[2019-08-31] MEDS ORDERED: MIDAZOLAM 2 MG/2 ML VIAL ONE (11:21)
[2019-08-31] MEDS ORDERED: PROTAMINE SULFATE 10 MG/ML 5 ML VIAL IV ONE (11:21)
[2019-08-31] MEDS ORDERED: PHENYLEPHRINE-0.9% NACL SYG 1 MG/10 ML SYRINGE ONE (11:21)
[2019-08-31] MEDS ORDERED: LIDOCAINE 1% INJ 10MG/ML (20 ML MDV) ONE ×2 (11:21→11:54)
[2019-08-31] MEDS ORDERED: SUCCINYLCHOLINE CHLORIDE 100 MG/5 ML SYR IV ONE (11:21)
[2019-08-31] MEDS ORDERED: HEPARIN SODIUM,PORCINE 10,000 UNIT/ML 1 ML VIAL ONE (11:21)
[2019-08-31] MEDS ORDERED: fentaNYL (PF) 50 MCG/ML 2 ML AMP ONE (11:21)
[2019-08-31] MEDS ORDERED: LIDOCAINE 1% INJ 10MG/ML (20 ML MDV) SQ ONE (12:12)
[2019-08-31] MEDS ORDERED: HEPARIN SOD,PORK IN 0.45% NACL 25,000 UNIT in 0.45% NACL 1 250ML.BAG IV ONE (12:13)
[2019-08-31] MEDS ORDERED: IOPAMIDOL-370 100ML BTL INJ ONE (14:43)
--- NOTE | 2019-08-31 15:06 | P.PCN ---
Preoperative Diagnosis: Diagnosis Atrial fibrillation, symptomatic, refractory to therapy Result No left atrial appendage mass seen on intracardiac echo Successful pulmonary vein isolation of all veins using cryo-ablation Complete entrance block in all 4 veins confirmed Patient status post left upper lobe a minute to me, left superior vein was a stump but was completely isolated and entrance and exit block was proven No evidence for phrenic nerve injury Esophageal deflection YES , left-sided esophagus Electrical cardioversion with a synchronized shock across the chest NO Procedure details Patient was brought to the EP lab in a fasting state. Written informed consent was obtained prior to the procedure. Procedure performed under general anesthe marlo After initial muscle relaxant use, muscle relaxants were not given thereafter in order to assess phrenic nerve during procedure. Patient prepped and draped as per protocol Full cryo-set up with standard preparation of the cryoablation tools done. Femoral Venous access obtained on the right and left groins Venous and arterial Sheaths placed. Diagnostic catheters for the high right atrium, phrenic nerve stimulation and pacing, His bundle, RV and coronary sinus placed Intracardiac echo catheter placed. Long sheath placed in the right atrium Left and right transseptal catheterization performed under intracardiac echo guidance. Intravenous heparin with aCT above 300 Later, catheter positioning and balloon positioning in the left atrium, under intracardiac echo guidance Diagnostic EP study with Coronary sinus pacing and recording Baseline measurements Sinus cycle length 1486, VA interval 138, QRS 110 and QT 564 ms AH interval 61 ms and HV interval 35 ms Atrial pacing performed from the high right atrium and the coronary sinus RV pacing Sinus recovery times at 600 504 100 ms were 03/27/2007, 1368 and 1376 ms. The corresponding convert to sinus node recovery times were within normal limits AV node Wenckebach block for 20 ms VA Wenckebach block for 20 ms Transseptal catheterization performed RA pressure 13/7/11 LA pressure 26/7/16 Transseptal catheterization performed with standard sheath. The cryoablation sheath was then placed with an over the wire exchange without any acute complications. All 4 pulmonary veins were isolated in the following sequence: Left superior followed by left inferior followed by right superior followed by right inferior The cryo-ablation balloon was placed at the os of each vein 1.5 mL of IV dye was injected to confirm an occluded vein Goal during cryoablation was to achieve complete occlusion of the pulmonary vein, achieve -30 degrees C at 30 seconds and achieve -40 degrees C at 60 seconds and a time to effect of less than 60-90 seconds, . If not the balloon was repositioned to obtain this result After completion of Cryoblation with durations from 180-240 seconds, entrance block was confirmed with the Attain circular catheter in a roving fashion around the antrum of the pulmonary veins Phrenic nerve pacing was performed from the SVC, right innominate vein area and diaphragm voltage was monitored. Diaphragmatic contractions were also monitored manually for strength of contraction. Parameter goals for each cryo freeze Complete occlusion of the appropriate vein -30 degrees C by 30 seconds -40 degrees C by 60 seconds Minimum between minus 40-55 degrees C Thaw time greater than 10 seconds Balloon visualized by intracardiac echo The esophagus was intubated. Esophageal Temperature monitoring with a CIRCA catheter formed. Esophageal deflection for hypothermia of the esophagus below 30 degrees C Left superior pulmonary vein stump, status post left upper pneumonectomy Complete isolation, entrance block Left inferior pulmonary vein Complete isolation, entrance block Right superior pulmonary vein, during phrenic nerve pacing Complete isolation, entrance block Right inferior pulmonary vein, during phrenic nerve pacing Complete isolation, entrance block At the end of the procedure the Achieve catheter was once again used to check for entrance block Phrenic nerve stimulation was performed to confirm diaphragmatic stimulation the end of the procedure Cine fluoroscopy was performed at the very end of the procedure to confirm movement of both diaphragms with inspiration and expiration At the end of the procedure the patient was extubated Heparin was reversed Venous sheaths were removed and hemostasis assured Procedures performed (PVI - CRYO Ablation) Diagnostic EP study CS pacing and recording Left and right transseptal catheterization Catheter the mapping of the tachycardia (NOT 3D mapping) Intracardiac echocardiography Pulmonary vein isolation with transseptal and comprehensive EPS, [id number] This was a long procedure The patient had had a left upper pneumonectomy. He had a left superior vein stump with signals that resembled left atrial appendage Intracardiac echocardiography images were difficult but we were finally able to prove that we occluded and isolated the left superior vein stump, not the left atrial appendage with different intracardiac echo images The right superior and right inferior pulmonary veins were large, likely compensatory for flow, especially the right superior
--- NOTE | 2019-08-31 15:08 | P.PRLE ---
RE: Maurice Aparicio Dear Geraldine Mr. Aparicio underwent successful pulmonary vein isolation for management of atrial fibrillation I am reducing the dose of amiodarone to 100 mg by mouth daily and reducing the dose of metoprolol succinate to 25 mg by mouth daily His LV function in sinus rhythm has now normalized, based on the intracardiac echo images Thank you for entrusting me with the care of the patient Warm regards Sincerely Ap Trejo
--- NOTE | 2019-08-31 15:14 | P.HPCAR ---
History of Present Illness This is Dr. Trejo dictating an H/P on this patient The patient was interviewed and examined IMPRESSION / ASSESSMENT: Symptomatic persistent atrial fibrillation associated with tachycardia mediated cardio myopathy, left radical ejection fraction severely reduced during A. fib Status post carotid endarterectomy Coronary artery disease status post coronary artery bypass grafting PVD Obstructive sleep apnea still waiting for an assessment anticoagulation indicated lifelong Atrial flutter ablation in the past PLAN: Pulmonary vein isolation Reduction in the dose of amiodarone thereafter HPI Patient was admitted for evaluation and management of atrial fibrillation He has a history of atrial fibrillation for which she underwent electrical cardioversion after loading with amiodarone He had severe LV dysfunction Subsequently in sinus rhythm, his left ventricular ejection fraction improved to 35% He is doing well at this time. No palpitations no dizziness lightheadedness or loss of consciousness No chest discomfort angina like symptoms No orthopnea PND No heart failure symptoms ROS: No fever chills or rigors, no cough, phlegm or expectoration, no nausea, vomiting or diarrhea, no hematuria, dysuria, no musculoskeletal complaints, no strokes or seizures, no skin lesions. EXAMINATION: Normal heart sounds systolic murmur audible Abdomen is soft nontender Extremity is warm no edema No S3 gallop Breath sounds are equal bilaterally no rhonchi no crackles No JVD No lower extremity edema REVIEW OF LABS, ECG & MEDICAL DATA Labs are reviewed hemoglobin 16.5, white count 6.7 INR 3.7 Sodium 138, potassium 4.6, chloride 107, bicarb 26 BUN 14 creatinine 0.93 Physical Exam Vitals: Vital Signs Temp Pulse Resp BP Pulse Ox 08/31/19 09:13 97.8 F 51 L 16 174/76 96 Intake and Output 08/31/19 08/31/19 08/31/19 06:59 14:59 22:59 Intake Total 140 Balance 140 Intake: IV 140 Other: Weight 90.2 kg Past Medical History Past Medical History: Atrial Fibrillation, Coronary Artery Disease (CAD), Cancer, COPD, Hypertension, Myocardial Infarction ([place]), Osteoarthritis (OA), Pneumonia, Sleep Apnea/CPAP/BIPAP, Vascular Disorder Additional Past Medical History / Comment(s): See Dr Trejo H&P, L lung cancer with surgery, RODOLFO without device, bronchitis, chronic low back pain, stomach ulcer at age 15 yrs. Last Myocardial Infarction Date:: 2011 History of Any Multi-Drug Resistant Organisms: None Reported Past Surgical History: Cardiac Ablation, Coronary Bypass/CABG, Heart Catheterization, Joint Replacement, Orthopedic Surgery Additional Past Surgical History / Comment(s): 2014 L lower lung lobectomy, L carotid endartectomy, 2011 CABG 3 vessel, R side of neck benign mass removed, bilateral leg vascular surgery with R leg done twice, colonoscopy, bilateral total knee arthroplasties, L index finger injury/amp at 13y/o. Past Anesthesia/Blood Transfusion Reactions: Previous Problems w/ Anesthesia Additional Past Anesthesia/Blood Transfusion Reaction / Comment(s): hx of "hard time waking up" Smoking Status: Former smoker - Past Family History Father Family Medical History: No Reported History Additional Family Medical History / Comment(s): Father is 87 years old with no major medical problems. Mother Family Medical History: Vascular Disorder Additional Family Medical History / Comment(s): Mother is at age 71 with peripheral vascular disease. Brother(s) Additional Family Medical History / Comment(s): Patient has 2 brothers and one has history of throat cancer, one brother has no major medical problems. Patient has no sisters. Patient is one daughter with no major medical problems. Physical Examination Vital Signs Temp Pulse Resp BP Pulse Ox 08/31/19 09:13 97.8 F 51 L 16 174/76 96 Intake and Output 08/31/19 08/31/19 08/31/19 06:59 14:59 22:59 Intake Total 140 Balance 140 Intake: IV 140 Other: Weight 90.2 kg Results 08/31/19 09:35 08/31/19 09:35 Coagulation 08/31/19 Range/Units 09:35 PT 36.0 H (9.0-12.0) sec CBC 08/31/19 Range/Units 09:35 WBC 6.7 (3.8-10.6) k/uL RBC 5.36 (4.30-5.90) m/uL Hgb 16.5 (13.0-17.5) gm/dL Hct 49.2 (39.0-53.0) % Plt Count 161 (150-450) k/uL Comprehensive Metabolic Panel 08/31/19 Range/Units 09:35 Sodium 138 (137-145) mmol/L Potassium 4.6 (3.5-5.1) mmol/L Chloride 107 (98-107) mmol/L Carbon Dioxide 26 (22-30) mmol/L BUN 14 (9-20) mg/dL Creatinine 0.93 (0.66-1.25) mg/dL Glucose 94 (74-99) mg/dL Calcium 8.9 (8.4-10.2) mg/dL Current Medications Generic Name Dose Route Start Last Admin Trade Name Freq PRN Reason Stop Dose Admin Lactated Ringer's 1,000 mls @ 20 mls/hr 08/31/19 06:13 Lactated Ringers IV .Q24H LEIF Sodium Chloride 1,000 mls @ 20 mls/hr 08/31/19 06:13 Saline 0.9% IV .Q24H LEIF Intake and Output 08/31/19 08/31/19 08/31/19 06:59 14:59 22:59 Intake Total 140 Balance 140 Intake: IV 140 Other: Weight 90.2 kg Patient Weight 09/01/19 06:59 Weight 90.2 kg 08/31/19 09:35 08/31/19 09:35
[2019-08-31] MEDS ORDERED: ACETAMINOPHEN TAB 325 MG TAB PO PRN (15:15)
[2019-08-31] MEDS ORDERED: ACETAMINOPHEN IV (For NPO) 1,000 MG in EMPTY BAG 1 BAG IVPB ONE (16:00)
[2019-08-31] MEDS: LACTATED RINGERS 1,000 ML IV SCH (16:12)
[2019-08-31] MEDS: SODIUM CHLORIDE 0.9% 1,000 ML IV SCH (16:12)
[2019-08-31] MEDS: HYDROcodone/APAP 5-325MG 1 EACH TAB PO PRN ×2 (17:08→21:54)
[2019-08-31] MEDS: hydrALAZINE HCL 50 MG TAB PO SCH (17:09)
[2019-08-31] MEDS ORDERED: WARFARIN 0.5 MG TAB PO ONE (18:00)
[2019-08-31] MEDS: amLODIPine 5 MG TAB PO SCH (21:53)
[2019-08-31] MEDS: LISINOPRIL 20 MG TAB PO SCH (23:02)
[2019-09-01] MEDS: hydrALAZINE HCL 50 MG TAB PO SCH ×2 (02:00→07:55)
[2019-09-01] MEDS: LACTATED RINGERS 1,000 ML IV SCH (05:48)
[2019-09-01] MEDS: SODIUM CHLORIDE 0.9% 1,000 ML IV SCH (05:48)
[2019-09-01 07:48] VITALS: TEMP 96.8
[2019-09-01] MEDS: HYDROcodone/APAP 5-325MG 1 EACH TAB PO PRN (07:51)
[2019-09-01] MEDS: LISINOPRIL 20 MG TAB PO SCH (07:52)
[2019-09-01] MEDS: amLODIPine 5 MG TAB PO SCH (07:53)
--- NOTE | 2019-09-01 08:00 | P.DS ---
Providers Attending physician: Ap Trejo Primary care physician: Geraldine Jett [facility] Course: Mr. Aparicio is doing well. He has no chest discomfort dizziness lightheadedness no cough expectoration no shortness of breath orthopnea PND His groins are mildly tender but there is no hematoma no swelling Normal heart sounds normal S1 normal S2 soft syst murmur Breath sounds are reduced bilaterally but no rhonchi no crackles Soft abdomen nontender Ixodes warm no edema No JVD 96.8F Heart rate 7 the 50s Blood pressure 134/64, 151/73 and 200/88 mmHg Pulse ox 93% on room air Impression Left upper lobe pneumonectomy for lung cancer in the past Successful cryoablation of the pulmonary veins including the left superior venous stump All pulmonary veins are completely isolated Hypertension sinus bradycardia Suggest Reduce metoprolol succinate 25 mg by mouth daily Reduce amiodarone to 100 mg by mouth daily Increase enalapril to 20 mg twice daily Add Dyazide Hydralazine 100 mg 3 times a day Continue anticoagulation Follow-up with Dr. Jett and Dr. Erickson as before Plan - Discharge Summary Discharge Rx Participant: No New Discharge Prescriptions: New Amiodarone [Cordarone] 100 mg PO DAILY #90 tab Metoprolol Succinate [Toprol XL] 25 mg PO DAILY #90 tab Triamterene/Hydrochlorothiazid [Triamterene-Hctz 37.5-25 mg Tb] 1 each PO DAILY #90 tablet Enalapril [Vasotec] 20 mg PO BID #180 tablet Discontinued Potassium Chloride [Klor-Con 20] 20 meq PO DAILY Enalapril [Vasotec] 20 mg PO QAM Metoprolol Tartrate [Lopressor] 50 mg PO DAILY Amiodarone [Cordarone] 100 mg PO BID No Action Cyanocobalamin (Vitamin B-12) [Vitamin B-12] 1,000 mcg PO DAILY Furosemide [Lasix] 20 mg PO DAILY Atorvastatin [Lipitor] 40 mg PO DAILY Ascorbic Acid/Multivit-Min [Emergen-C 1,000 mg Packet] 1,000 mg PO DAILY Albuterol Nebulized [Ventolin Nebulized] 2.5 mg INHALATION Q4H PRN PRN Reason: Shortness Of Breath hydrALAZINE HCL [Apresoline] 100 mg PO QID Warfarin [Coumadin] 5 mg PO DAILY amLODIPine [Norvasc] 5 mg PO BID Discharge Medication List Ascorbic Acid/Multivit-Min [Emergen-C 1,000 mg Packet] 1,000 mg PO DAILY 04/25/19 [History] Atorvastatin [Lipitor] 40 mg PO DAILY 04/25/19 [History] Cyanocobalamin (Vitamin B-12) [Vitamin B-12] 1,000 mcg PO DAILY 04/25/19 [History] Furosemide [Lasix] 20 mg PO DAILY 04/25/19 [History] Albuterol Nebulized [Ventolin Nebulized] 2.5 mg INHALATION Q4H PRN 08/29/19 [History] Warfarin [Coumadin] 5 mg PO DAILY 08/29/19 [History] amLODIPine [Norvasc] 5 mg PO BID 08/29/19 [History] hydrALAZINE HCL [Apresoline] 100 mg PO QID 08/29/19 [History] Amiodarone [Cordarone] 100 mg PO DAILY #90 tab 08/31/19 [Rx] Enalapril [Vasotec] 20 mg PO BID #180 tablet 08/31/19 [Rx] Metoprolol Succinate [Toprol XL] 25 mg PO DAILY #90 tab 08/31/19 [Rx] Triamterene/Hydrochlorothiazid [Triamterene-Hctz 37.5-25 mg Tb] 1 each PO DAILY #90 tablet 08/31/19 [Rx] Follow up Appointment(s)/Referral(s): Jo-Ann Erickson MD [STAFF PHYSICIAN] - 1 Week Activity/Diet/Wound Care/Special Instructions: Post EP study - Ablation instructions 1. Keep access sites dry for 2 days. 2. No heavy lifting or straining for 2 days. 3. Avoid bending the hips repeatedly for 2 days. 4. You may go up and down stairs slowly Call if the following is noted 1. Bleeding, increasing swelling or pain at the access sites. 2. Increasing chest discomfort, especially upon taking a deep breath. 3. Increasing shortness of breath, at rest or with exertion. 4. Undue cough / phlegm 5. Difficulty or pain while swallowing. 6. Pain or change in color in the extremities. 7. Fever, chills, rigors. 8. Increasing headache or neurologic symptoms. 9. Dizziness, fainting, palpitations Changes in cardiac medications as follows Metoprolol succinate 25 mg by mouth daily Amiodarone 100 mg by mouth daily Enalapril 20 mg twice daily Triamterene hydrochlorothiazide 37.5/25 mg by mouth daily Continue anticoagulation with Coumadin Reduce hydralazine 200 mg 3 times a day Discharge Disposition: HOME SELF-CARE
[2019-09-01 08:24] LABS: INR 2.3 (<1.2); Prothrombin Time 22.7 sec (9.0-12.0)
[2019-09-01] MEDS ORDERED: FUROSEMIDE 20 MG TAB PO SCH (09:00)
[2019-09-01] MEDS ORDERED: ATORVASTATIN 40 MG TAB PO SCH (09:00)
[2019-09-01] MEDS ORDERED: AMIODARONE 100 MG TAB PO SCH (09:00)
[2019-09-01] MEDS ORDERED: WARFARIN 5 MG TAB PO SCH (09:00)
[2019-09-01] MEDS ORDERED: TRIAMTERENE-HCTZ 37.5-25MG 1 EACH TAB PO SCH (09:00)
[2019-09-01 10:33] VITALS: BP 162/79; PULSE 58; RESP 18
[2019-09-01] MEDS ORDERED: WARFARIN 3 MG TAB PO ONE (18:00)
== END 2019-09-01 12:00 | disposition home or self-care (01) ==
LOC: CATHEP 08:27 → 1SOBS 14:49 → CATHEP 09-01 12:00
PROVIDERS: ATTEND Internal Medicine Clinical Cardiac Electrophysiology
DX: I48.19 Other persistent atrial fibrillation (principal); I48.92 Unspecified atrial flutter; R00.0 Tachycardia, unspecified; R00.1 Bradycardia, unspecified; I42.8 Other cardiomyopathies; I10 Essential (primary) hypertension; E78.5 Hyperlipidemia, unspecified; I73.9 Peripheral vascular disease, unspecified; G47.33 Obstructive sleep apnea (adult) (pediatric); J44.9 Chronic obstructive pulmonary disease, unspecified; M19.90 Unspecified osteoarthritis, unspecified site; I25.10 Atherosclerotic heart disease of native coronary artery without angina pectoris; Z87.891 Personal history of nicotine dependence; G89.29 Other chronic pain; M54.5 Low back pain; I25.2 Old myocardial infarction; Z87.01 Personal history of pneumonia (recurrent); Z85.118 Personal history of other malignant neoplasm of bronchus and lung; Z87.11 Personal history of peptic ulcer disease; Z95.1 Presence of aortocoronary bypass graft; Z90.2 Acquired absence of lung [part of]; Z96.653 Presence of artificial knee joint, bilateral; Z98.890 Other specified postprocedural states; Z80.0 Family history of malignant neoplasm of digestive organs; Z82.49 Family history of ischemic heart disease and other diseases of the circulatory system; Z79.01 Long term (current) use of anticoagulants; Z79.899 Other long term (current) drug therapy; Z88.8 Allergy status to other drugs, medicaments and biological substances
CPT/HCPCS: 85347; 93662; 93609; 93656; 80048; 85025; 85610 ×2; C1769 ×4; C1894; C1893; C1733; C1730; J2250; J2720; J1644 ×2; J2001; J3010; J0131; J2370; J0330; J2704; Q9967

== ENCOUNTER → 2019-09-26 | Outpatient (CLI) | payer MEDICARE ==
--- NOTE | 2019-09-26 16:25 | PN ---
PROGRESS NOTE This is a 64-year-old male patient who is known to me and was seen in our sleep center back in 2018 for obstructive sleep apnea. At that time the patient was diagnosed having moderate to mild disease with an AHI of 14.2, and he was offered CPAP therapy at a pressure of 9 cm of water. The patient back then was not approved for a machine, and he dropped the treatment. He does have multiple medical problems and comorbidities. He is known to have CAD with previous bypass surgery and he has also cardiomyopathy with an ejection fraction of 20% to 25%. He has peripheral vascular disease and carotid artery disease with previous endarterectomy on the left, hypertension, hyperlipidemia, and he has also previous history of lung cancer requiring lobectomy. More recently he was having refractory atrial fibrillation. He underwent cardioversion that failed, and ultimately he required cardiac ablation with cryotherapy. His current rhythm is sinus. Based on all this, he was referred back to the sleep center hoping to get a CPAP machine regarding his obstructive sleep apnea. Clinically the patient is still symptomatic. He is having snoring and his sleep is fragmented and he has excessive tiredness and sleepiness during the day. He has not gained a significant amount of weight. His current weight is 205 with a BMI of 29.8. Pulse ox on room air is 96%. No nighttime angina, orthopnea or paroxysmal nocturnal dyspnea. No significant swelling in the lower extremities. No sleep paralysis, hallucinations or cataplexy for now. MEDICATION HISTORY: 1. Xarelto 20 mg p.o. daily. 2. Amiodarone 200 mg p.o. b.i.d. 3. Vitamin B12 1000 mcg p.o. daily. 4. Potassium 20 mEq daily. 5. Lasix 20 mg p.o. daily. 6. Vasotec 20 mg daily. 7. Lipitor 40 mg p.o. daily. 8. Multivitamin 1 tablet a day. 9. Metoprolol 50 mg p.o. daily. REVIEW OF SYSTEMS: Fourteen-point review of systems was done. Positive findings were all mentioned above in the history of present illness. As mentioned earlier, he has a history of claudication with bilateral lower extremity procedures. He has peripheral vascular disease and has undergone endarterectomy on the left. He has chronic exertional dyspnea. He has undergone previous lobectomy. He did have some scrotal edema which subsequently improved. No significant leg edema at this point in time. No angina. No palpitation. No other complaints. PHYSICAL EXAMINATION: VITAL SIGNS: BP is 144/74, pulse 60, respirations 16, temperature 98.1, saturation 96% on room air. Height is 5 feet 9 inches, weight is 205 and BMI 29.8. Neck size is 16- 1/2 inches. GENERAL APPEARANCE: Calm, comfortable. HEAD: Atraumatic, normocephalic. NECK: Supple. No JVD. No goiter or neck masses. Mallampati class IV. LUNGS: Clear to auscultation. HEART: Heart sounds are distant, regular. Positive S1, S2. No significant murmurs appreciated. ABDOMEN: Soft, nontender. No organomegaly. EXTREMITIES: No edema. No cyanosis or clubbing. NEUROLOGIC: Awake and alert. There is no focal neurological deficit. IMPRESSION: 1. Obstructive sleep apnea, mild in severity. AHI of 14. Diagnosis was established in November of 2017. The patient is currently receiving no treatment. 2. History of lung cancer with previous lobectomy. 3. Coronary artery disease with previous bypass surgery. 4. Congestive heart failure with an ejection fraction of 20% to 25%. 5. History of atrial fibrillation with rapid ventricular response, paroxysmal, currently in sinus rhythm. He has undergone recent cryoablation of atrial fibrillation. 6. Peripheral vascular disease. 7. Carotid endarterectomy on the left. 8. Hypertension. 9. Hyperlipidemia. 10.History of scrotal edema with a moderate-sized hydrocele on the right. PLAN: 1. Will arrange a CPAP titration for this patient. I am not absolutely sure he is going to end up with a CPAP; however, that is a possibility. His CHF is under good treatment and is well compensated for now, and his cardiac rhythm is sinus. No significant cardiac arrhythmias for now. Will do a CPAP titration and, if needed, will upgrade him to BiPAP. 2. The patient will be offered an appropriate device at an appropriate pressure setting following the titration, and I will make sure the patient remains compliant and that he achieves an adequate clinical response. 3. Continue the same cardiac medication. 4. Tight control of cardiovascular risk factors. 5. Will continue to follow. MMODL / IJN: [id number] /
== END | disposition home or self-care (01) ==
LOC: SLEEP 15:19
PROVIDERS: ATTEND Internal Medicine Critical Care Medicine
DX: G47.33 Obstructive sleep apnea (adult) (pediatric) (principal); I73.9 Peripheral vascular disease, unspecified; I25.10 Atherosclerotic heart disease of native coronary artery without angina pectoris; E78.5 Hyperlipidemia, unspecified; I11.0 Hypertensive heart disease with heart failure; I50.9 Heart failure, unspecified; Z90.2 Acquired absence of lung [part of]; Z85.118 Personal history of other malignant neoplasm of bronchus and lung; Z95.1 Presence of aortocoronary bypass graft; Z87.438 Personal history of other diseases of male genital organs; Z86.79 Personal history of other diseases of the circulatory system; Z98.890 Other specified postprocedural states; Z79.01 Long term (current) use of anticoagulants; Z79.899 Other long term (current) drug therapy

== ENCOUNTER → 2020-03-12 | Day surgery (SDC) | payer MEDICARE ==
[~2020-03-12] MED LIST: ACETAMINOPHEN TAB 500 MG TAB PO PRN; DEXAMETHASONE SOD PHOSPHATE 4 MG/ML 1 ML VIAL IV ONE; HEPARIN SODIUM,PORCINE 5,000 UNIT/ML 1 ML VIAL SQ PRN; HYDROmorphone 0.5 MG/0.5 ML SYRINGE IVP PRN; LACTATED RINGERS 1,000 ML IV SCH; LIDOCAINE 1% (10MG/ML) FOR IV START INTRADERMA PRN; ONDANSETRON 4 MG/2 ML VIAL IVP ONE; PHYTONADIONE 10 MG in SODIUM CHLORIDE 0.9% 50 ML IVPB STA; SCOPOLAMINE 1.5MG/72HR PATCH TRANSDERM ONE
[2020-03-12 07:20] VITALS: RESP 17; TEMP 97.4
[2020-03-12 08:08] LABS: INR 2.6 (<1.2); Partial Thromboplastin Time 38.5 sec (22.0-30.0); Prothrombin Time 25.5 sec (9.0-12.0)
[2020-03-12] MEDS: PHYTONADIONE ORAL 5 MG/5 ML ORAL.SYRG PO STA ×2 (10:20→10:23)
[2020-03-12 10:28] VITALS: BP 164/73; PULSE 54
== END ==
LOC: OR 07:02
PROVIDERS: ATTEND Surgery
DX: K40.90 Unilateral inguinal hernia, without obstruction or gangrene, not specified as recurrent (principal); Z53.8 Procedure and treatment not carried out for other reasons; Z97.2 Presence of dental prosthetic device (complete) (partial); I48.91 Unspecified atrial fibrillation; Z79.01 Long term (current) use of anticoagulants; Z79.899 Other long term (current) drug therapy; Z95.1 Presence of aortocoronary bypass graft; Z98.890 Other specified postprocedural states
CPT/HCPCS: 84132; 85610; 85730; J3430; J1100; J2405

== ENCOUNTER → 2020-04-05 | Day surgery (SDC) | payer MEDICARE ==
[2020-04-02 09:43] VITALS: BMI 29.8
[~2020-04-05] MED LIST changes: -ACETAMINOPHEN TAB 500 MG TAB PO PRN; +GLYCOPYRROLATE 0.2 MG/ML 2 ML VIAL ONE; +HYDROcodone/APAP 5-325MG 1 EACH TAB ONE; +HYDROcodone/APAP 5-325MG 1 EACH TAB PO ONE; +HYDROmorphone (PF) 1 MG/ML ONE; +LIDOCAINE 1% (10MG/ML) FOR IV START INTRADERMA ONE; -LIDOCAINE 1% (10MG/ML) FOR IV START INTRADERMA PRN; +LIDOCAINE 1% INJ 10MG/ML (20 ML MDV) ONE; +LIDOCAINE 1% INJ 10MG/ML (20 ML MDV) SQ ONE; +MIDAZOLAM 2 MG/2 ML VIAL IV ONE; +NEOSTIGMINE 1 MG/ML 10 ML VIAL ONE; -PHYTONADIONE 10 MG in SODIUM CHLORIDE 0.9% 50 ML IVPB STA; +PROPOFOL 10 MG/ML 20 ML VIAL IV ONE; +ROCURONIUM 10 MG/ML (10 ML VIAL) IV ONE; +ROPIVACAINE 5 MG/ML 30 ML VIAL ONE; -SCOPOLAMINE 1.5MG/72HR PATCH TRANSDERM ONE; +SUCCINYLCHOLINE CHLORIDE 100 MG/5 ML SYR IV ONE; +fentaNYL (PF) 50 MCG/ML 2 ML AMP IV ONE; +fentaNYL (PF) 50 MCG/ML 2 ML AMP ONE
[2020-04-05 11:32] LABS: Basophils # (A) 0.1 k/uL (0-0.2); Basophils % (A) 1 %; Eosinophils # (A) 0.3 k/uL (0-0.7); Eosinophils % (A) 4 %; HCT 47.3 % (39.0-53.0); HGB 15.8 gm/dL (13.0-17.5); Lymphocytes % (A) 27 %; MCH 30.6 pg (25.0-35.0); MCHC 33.4 g/dL (31.0-37.0); MCV 91.6 fL (80.0-100.0); Mean Platelet Volume 7.1; Monocytes # (A) 0.5 k/uL (0-1.0); Monocytes % (A) 6 %; Neutrophils # (A) 4.6 k/uL (1.3-7.7); Neutrophils % (A) 61 %; Platelet Count 209 k/uL (150-450); RBC 5.17 m/uL (4.30-5.90); RDW 14.4 % (11.5-15.5); WBC 7.6 k/uL (3.8-10.6)
[2020-04-05 11:42] LABS: Potassium 4.2 mmol/L (3.5-5.1)
[2020-04-05 12:12] LABS: INR 1.1 (<1.2); Partial Thromboplastin Time 24.5 sec (22.0-30.0); Prothrombin Time 11.5 sec (9.0-12.0)
--- NOTE | 2020-04-05 13:00 | P.ANPRN ---
Procedure Note - Anesthesia - Nerve Block Performed Bilateral Transversus Abdominis Single Time Out Performed: Yes (1217) Date of Procedure: 04/05/20 Procedure Start Time: 12:18 Procedure Stop Time: 12:31 Location of Patient: PreOp Indication: Acute Post-Operative Pain, Requested by Surgeon Specifically requested for management of pain by : Carrie Angel Sedation Type: Sedate with meaningful contact maintained Preparation: Sterile Prep Position: Supine Catheter: None Needle Types: Pajunk Needle Gauge: 21 Ultrasound used to visualize needle placement: Yes Ultrasound used to observe medication spread: Yes Injectate: 0.5% Ropivacaine (see comment for volume) (20cc each side) Blood Aspirated: No Pain Paresthesia on Injection Noted: No Resistance on Injection: Normal Image Stored and Saved: Yes Events: Uneventful and Well Tolerated
--- NOTE | 2020-04-05 13:39 | P.OP ---
Date of Procedure: 04/05/20 Preoperative Diagnosis: Right inguinal hernia Postoperative Diagnosis: Right inguinal indirect hernia Procedure(s) Performed: Robotic right inguinal hernia repair with mesh Anesthesia: GUEVARA Surgeon: Carrie Angel Pathology: none sent Condition: stable Disposition: same day Indications for Procedure: 64-year-old male with right-sided inguinal hernia. This is causing a significant amount of discomfort for the patient. He has requested repair. He is taking Coumadin and has held his Coumadin for 6 days. Preop INR is 1.1. Risks, benefits and alternatives were provided to the patient. Consent was provided prior to attending the operating suite. Operative Findings: Right inguinal indirect hernia Description of Procedure: The patient was brought to the operating suite and placed in supine position. After general endotracheal anesthesia was induced, arms were tucked incised bilaterally and all pressure points were padded. SCDs were also placed in bilateral lower extremities and were working throughout the entire case. Preoperative antibiotics were given prior to the incision. A timeout was performed with all team members in agreement with correct patient, procedure and location. A super umbilical incision was made approximately 20 cm superior to the pubic symphysis. The abdomen was then entered after dissection was carried to the fascia and the fascia was incised. At this point pneumoperitoneum was achieved. 2 additional incisions were made approximately 11 cm lateral to the supraumbilical incision and 8 mm trochars were placed. The patient was then placed in Trendelenburg position and the hernia site was clearly visualized on the right side. This was noted as an indirect inguinal hernia. No obvious hernia was noted on the left side. 30 mL of local anesthetic was then placed in the anticipated peritoneal layer of the anticipated flap. The robot was then docked appropriately. Incision was then made just lateral to the medial umbilical ligament on the right side with the monopolar scissors and the peritoneal flap was created and was taken down towards Curtis's ligament. The flap was then extended laterally. Attention was then turned to the indirect inguinal hernia. The sac was freed from the cord all while preserving the cord structures. At this point, the indirect hernia was reduced. Once the entire space was appropriately dissected, we brought the laparoscopic anatomic parietex progrip mesh and unrolled it over the hernia site. Once appropriately in place, the peritoneal flap was closed using a running 20V lock suture. Once this was completed, we removed all robotic instrument and undocked the robot. The super umbilical fascial incision was closed with 0 Vicryl suture using a Juan M- Erick device under direct visualization. All skin incisions were then closed with 4-0 Vicryl suture. The patient was awakened and taken to recovery unit in stable condition.
[2020-04-05 13:56] VITALS: TEMP 97.8
[2020-04-05 14:45] VITALS: BP 170/73; PULSE 66; RESP 16
== END | disposition home or self-care (01) ==
LOC: OR 10:29
PROVIDERS: ATTEND Surgery
DX: K40.90 Unilateral inguinal hernia, without obstruction or gangrene, not specified as recurrent (principal); M19.90 Unspecified osteoarthritis, unspecified site; I48.91 Unspecified atrial fibrillation; I25.2 Old myocardial infarction; I11.0 Hypertensive heart disease with heart failure; I50.9 Heart failure, unspecified; J44.9 Chronic obstructive pulmonary disease, unspecified; G47.33 Obstructive sleep apnea (adult) (pediatric); Z85.118 Personal history of other malignant neoplasm of bronchus and lung; Z98.890 Other specified postprocedural states; Z98.62 Peripheral vascular angioplasty status; Z95.1 Presence of aortocoronary bypass graft; Z82.49 Family history of ischemic heart disease and other diseases of the circulatory system; Z87.891 Personal history of nicotine dependence; Z79.899 Other long term (current) drug therapy; Z79.01 Long term (current) use of anticoagulants; Z97.2 Presence of dental prosthetic device (complete) (partial); Z88.8 Allergy status to other drugs, medicaments and biological substances
CPT/HCPCS: 64488; 80051; 85025; 85610; 85730; 49650; C1781; J2250; J1644; J1100; J2710; J0690; J2405; J2001; J3010; J1170 ×2; J2795; J0330; J2704

== ENCOUNTER → 2020-05-10 | Outpatient (CLI) | payer MEDICARE ==
--- NOTE | 2020-05-10 13:21 | XR ---
EXAMINATION TYPE: XR ribs LT w pa chest xray DATE OF EXAM: 05/10/2020 COMPARISON: 04/28/2019 HISTORY: Fall on steps pain posterior left ribs TECHNIQUE: AP chest supplementing with two-view left RIBS FINDINGS: Heart size is normal. Pulmonary vasculature is normal. No pneumothorax is evident. Hyperinf lation is present. No displaced left rib fractures are evident. IMPRESSION: 1. Normal left ribs
== END | disposition home or self-care (01) ==
LOC: RADXRMAIN 12:57
PROVIDERS: ATTEND Internal Medicine
DX: R07.81 Pleurodynia (principal)